=== PATIENT | female | born 1975 | race Caucasian/White ===

== ENCOUNTER 2022-12-12 07:27 | Outpatient (OUT) | payer BC, SELFPAY ==
[2022-12-12 07:44] LABS: Basophils Absolute Auto 0.1 10^3/uL (0.0-0.1); Eosinophils Absolute Auto 0.2 10^3/uL (0.0-0.7); Eosinophils Percent Auto 3.5 % (0.9-7.0); Hematocrit 40.3 % (36.0-48.0); Hemoglobin 13.3 g/dL (12.0-16.0); Immature Granulocytes Abs Auto 0.01 10^3/uL (0.00-0.03); Immature Granulocytes Pct Auto 0.2 % (0.0-0.5); Lymphocytes Absolute Auto 2.3 10^3/uL (1.2-3.8); Lymphocytes Percent Auto 39.6 % (20.5-60.0); Mean Corpuscular Hemoglobin 28.7 pg (26.7-34.0); Mean Corpuscular Volume 86.9 fL (81.0-99.0); Mean Platelet Volume 9.9 fL (9.5-13.5); Monocytes Absolute Auto 0.3 10^3/uL (0.3-0.8); Neutrophils Absolute Auto 2.9 10^3/uL (1.4-6.5); Neutrophils Percent Auto 50.7 % (43.0-75.0); Platelet Count 286 10^3/uL (150-450); Red Blood Count 4.64 10^6/uL (4.20-5.40); Red Cell Distribution Width 13.1 % (11.0-15.0); White Blood Count 5.8 10^3/uL (4.0-11.0)
[2022-12-12 13:55] LABS: Anion Gap 11.7; Carbon Dioxide 26.1 mmol/L (21.0-32.0); Chloride 105 mmol/L (98-107); Potassium 3.8 mmol/L (3.5-5.1); Sodium 139 mmol/L (136-145)
[2022-12-12 13:56] LABS: Alanine Aminotransferase 42 U/L (14-59); Albumin Globulin Ratio 1.1; Alkaline Phosphatase 102 U/L (46-116); Aspartate Amino Transferase 21 U/L (15-37); BUN Creatinine Ratio 18.9; Bilirubin Total 0.8 mg/dL (0.2-1.0); Chol HDL Ratio 2.9; Cholesterol 212 mg/dL (<=200); Estimated GFR (African America >60 (>=60); Estimated GFR (Non-African Ame >60 (>=60); Globulin 3.6 g/dL; Glucose 98 mg/dL (74-106); HDL Cholesterol 72 mg/dL (40-60); Total Protein 7.6 g/dL (6.4-8.2); Triglycerides 97 mg/dL (<=150); VLDL CHOLESTEROL 19.4 mg/dL
[2022-12-12 13:57] LABS: Thyroid Stimulating Hormone 2.664 uIU/mL (0.358-3.740)
== END 2022-12-12 07:28 | disposition home or self-care (01) ==
LOC: LAB 07:27
PROVIDERS: PCP Family Medicine; Visit Provider Family Medicine
DX: Z00.00 Encounter for general adult medical examination without abnormal findings (principal)
CPT/HCPCS: 36415; 80053; 80061; 84443; 85025

== ENCOUNTER 2023-03-25 14:30 | Outpatient (OUT) | payer BC, SELFPAY | END 2023-03-25 14:31 | disposition home or self-care (01) | LOC: LAB 14:31 | PROVIDERS: PCP Family Medicine | DX: D39.10 Neoplasm of uncertain behavior of unspecified ovary (principal) | CPT/HCPCS: 36415; 83520; 86336 ==

== ENCOUNTER 2023-03-26 15:19 | Outpatient (OUT) | payer BC, SELFPAY | END 2023-03-26 15:20 | disposition home or self-care (01) | PROVIDERS: PCP Family Medicine | DX: D39.10 Neoplasm of uncertain behavior of unspecified ovary (principal) | CPT/HCPCS: 36415; 86336 ==

== ENCOUNTER 2023-07-01 21:47 | Outpatient (REF) | payer BC, SELFPAY ==
[2023-07-07 09:09] LABS: Age Gdln ACOG Testing Note (.); HPV Aptima Negative (Negative); IGP, Aptima HPV, rfx 16/18,45 Note (.)
== END 2023-07-01 21:48 | disposition home or self-care (01) ==
LOC: LAB 21:47
PROVIDERS: PCP Family Medicine; Visit Provider Physician Assistant
DX: Z01.419 Encounter for gynecological examination (general) (routine) without abnormal findings (principal)
CPT/HCPCS: 87624; G0145

== ENCOUNTER 2023-09-09 08:21 | Outpatient (OUT) | payer BC, SELFPAY ==
--- OUTSIDE RECORDS SUMMARY | 2023-09-10 08:24 | XMS_ITS | CCD ---
Author Organization [facility] Care Team Providers Care Director Of Public Works Name Role Phone DEREK BENITEZ Attending Unavailable DEREK BENITEZ Referring Unavailable JAIDEN ., DR SURESH Attending Unavailable JAIDEN ., DR SURESH Admitting Unavailable JAIDEN ., DR SURESH Primary Care Unavailable JAIDEN ., DR SURESH Consulting Unavailable MISC, DR PAREDES Admitting Unavailable MISC, DR PAREDES Consulting Unavailable MISC, DR PAREDES Attending Unavailable JAIDEN ., DR SURESH Primary Care Unavailable MISC, DR PAREDES Attending Unavailable MISC, DR PAREDES Admitting Unavailable JAIDEN ., DR SURESH Primary Care Unavailable JAIDEN ., DR SURESH Consulting Unavailable MISC, DR PAREDES Admitting Unavailable MISC, DR PAREDES Consulting Unavailable MISC, DR PAREDES Attending Unavailable JAIDEN ., DR SURESH Primary Care Unavailable KATHRYN ESCAMILLA Attending Unavailable Allergies Allergy Classification Reported Allergen(s) Allergy Type Date of Onset Reaction(s) Facility (1 source) Bee; Translations: [BEES] Propensity to adverse reactions (disorder) [facility] Repository (1 source) bee venom Drug allergy (disorder) [facility] Repository Problems Active Problems Problem Classification Problem Date Documented Da te Episodic/Chronic Neoplasms of unspecified nature or uncertain behavior (4 sources) 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; Translations: [NEOPLASM UNCERT BEHAVIOR UNS OVARY] Onset: 10-02-2022 Episodic Past or Other Problems Problem Classification Problem Date Documented Date Episodic/Chronic Immunizations and screening for infectious disease (1 source) Encounter for screening for human papillomavirus (HPV); Translations: [ENC SCREENING HUMAN PAPILLOMAVIRUS] Onset: 06-20-2022 Episodic Other screening for suspected conditions (not mental disorders or infectious disease) (4 sources) Encounter for screening for malignant neoplasm of cervix; Translations: [ENC SCREENING MALIG NEOPLASM CERV] Onset: 06-18-2022 Episodic Results Test Name Value Interpretation Reference Range Facility MG MAMM SCREEN 3D NIKO CADon 11-19-2022 MG MAMM SCREEN 3D NIKO CAD Patient: KATHRYN PADRON Exam Date: 11/19/2022 : 1975 Gender:F Ordering : DR KERWIN VERA . Admission #: [id number] Family : DR PAREDES [facility] [place] Order #: [id number] CLICK HERE TO VIEW EXAM RADIOLOGY REPORT PROCEDURE: MAMMOGRAM SCREENING 3D BILATERAL CAD COMPARISON: MG MAMM SCREEN 3D NIKO CAD, 11/15/2021. MG MAMM SCREEN 3D NIKO CAD, 11/12/2020. MG MAMM SCREEN NIKO W CAD, 11/10/2019. MG MAMM SCREEN NIKO W CAD, 11/09/2017. INDICATIONS: Screening mammography Calculator Name NCI Breast Cancer Risk Assessment Tool 5 Year Breast Cancer Risk 0.80% Lifetime Breast Cancer Risk 9.70% Personal Breast Cancer No Personal Ovarian Cancer Yes, 43 Treatments None Family Cancers Grandfather-paternal with colon cancer at age 80. LOCATION: [facility] BREAST COMPOSITION: Heterogeneously dense,which may obscure small masses. FINDINGS: DIAGNOSTIC CATEGORY 1--NEGATIVE. RIGHT BREAST: No significant suspicious finding. No significant change has occurred. LEFT BREAST: No significant suspicious finding. No significant change has occurred. RECOMMENDATIONS: ROUTINE MAMMOGRAM AND CLINICAL EVALUATION IN 12 MONTHS. PLEASE NOTE: A NORMAL MAMMOGRAM DOES NOT EXCLUDE THE POSSIBILITY OF BREAST CANCER. A CLINICALLY SUSPICIOUS PALPABLE LUMP SHOULD BE BIOPSIED. Dictated by: Vincent Mcmanus M.D. on 11/19/2022 at 14:00 Approved by: Vincent Mcmanus M.D. on 11/19/2022 at 14:02 Normal [facility] INHIBIN Bon 10-06-2022 Inhibin B <7.0 Normal [facility] Comment on above: Result Comment: Rishabh y Follicular <261.0 Late Follicular <286.0 Periovulatory <189.0 MidLuteal <164.0 End Luteal <107.0 Post Menopausal < 17.0 Inhibin B performed by [facility](TM) Enzyme Linked Immunoassay methodology. Values obtained with different assay methods or kits cannot be used interchangeably. Performed By: #### I MOBNB #### [facility] [address] [place] [address] Dr. Socrates Aquino INHIBIN A, ULTRASENSITVEon 0 10-03-2022 Inhibin A, Ultrasensitive 0.4 pg/mL Normal [facility] Comment on above: Result Comment: Mens trual Phase Early Follicular <34.0 Late Follicular <99.0 Periovulatory 8.0-233.0 MidLuteal <145.0 End Luteal <145.0 Postmenopausal <4.0 Inhibin A performed by [employer] Access Automated Immunoassay methodology. Values obtained with different assay methods or kits cannot be used interchangeably. Performed By: #### I NHIBIN #### [facility] [address] [place] [address] Dr. Socrates Aquino PAP ACOG PANEL 2: 30 to 65on 06-26-2022 . . Normal [facility] Comment on above: Result Comment: Perf ormed at: BA Performed By: #### [id number] #### [facility] [address] [place] [address] Dr. Socrates Aquino Age Gdln ACOG Testing 30-65 [facility] Comment on above: Performed By: #### [id number] #### [facility] [address] [place] [address] Dr. Socrates Aquino DIAGNOSIS: Comment Normal [facility] Comment on above: Result Comment: NEGA TIVE FOR INTRAEPITHELIAL LESION OR MALIGNANCY. Performed at: BA Performed By: #### [id number] #### [facility] [address] [place] [address] Dr. Socrates Aquino HPV Aptima Negative Normal Negative [facility] Comment on above: Result Comment: This nucleic acid amplification test detects fourteen high-risk HPV types (16,18,31,33,35,39,45,51,52,56,58,59,66,68) without differentiation. Performed at: =G Performed By: #### [id number] #### [facility] [address] [place] [address] Dr. Socrates Aquino HPV Genotype Reflex Comment Normal [facility] Comment on above: Result Comment: Crit eria not met, HPV Genotype not performed. Performed at: BA Performed By: #### [id number] #### [facility] [address] [place] [address] Dr. Socrates Aquino Methodology: Comment Normal [facility] Comment on above: Result Comment: This liquid based ThinPrep(R) pap test was screened with the use of an image guided system. Performed at: WB Performed By: #### [id number] #### [facility] [address] [place] [address] Dr. Socrates Aquino Note: Comment Normal [facility] Comment on above: Result Comment: The Pap smear is a screening test designed to aid in the detection of premalignant and malignant conditions of the uterine cervix. It is not a diagnostic procedure and should not be used as the sole means of detecting cervical cancer. Both false-positive and false-negative reports do occur. . Performed at: WB Performed By: #### [id number] #### [facility] [address] [place] [address] Dr. Socrates Aquino Performed by: Comment Normal [facility] Comment on above: Result Comment: Brittany Campbell, Electrical Power Station Technician (ASCP) Performed at: BA Performed By: #### 4 [id number] #### [facility] [address] [place] [address] Dr. Socrates Aquino Specimen adequacy: Comment Normal [facility] Comment on above: Result Comment: Sati sfactory for evaluation. Endocervical and/or squamous metaplastic cells (endocervical component) are present. Performed at: BA Performed By: #### 4 [id number] #### [facility] [address] [place] [address] Dr. Socrates Aquino INHIBIN Bon 04-11-2022 Inhibin B <7.0 Normal [facility] Comment on above: Result Comment: Rishabh y Follicular <261.0 Late Follicular <286.0 Periovulatory <189.0 MidLuteal <164.0 End Luteal <107.0 Post Menopausal < 17.0 Inhibin B performed by [facility](TM) Enzyme Linked Immunoassay methodology. Values obtained with different assay methods or kits cannot be used interchangeably. Performed By: #### I NHBNB #### [facility] [address] [place] [address] Dr. Socrates Aquino INHIBIN A, ULTRASENSITVEon 1 Inhibin A, Ultrasensitive 0.8 pg/mL Normal [facility] Comment on above: Result Comment: Mens trual Phase Early Follicular <34.0 Late Follicular <99.0 Periovulatory 8.0-233.0 MidLuteal <145.0 End Luteal <145.0 Postmenopausal <4.0 Inhibin A performed by [employer] Access Automated Immunoassay methodology. Values obtained with different assay methods or kits cannot be used interchangeably. Performed By: #### I NHIBIN #### [facility] [address] [place] [address] Dr. Socrates Aquino CNOVSPon 02-25-2019 CNOVSP Visit (SP) Office (GYNOSA) KATHRYN PADRON ([id number]) 1975 F Date Time Provider Department 02/25/19 8:00 AM DEREK BENITEZ During your visit today, we recorded the following information about you: Temperature Pulse Respiration Blood pressure 98 degrees 68/minute 16/minute 107/73 Weight 71.8 kg Derek Benitez MD 02/27/2019 6:59 AM Signed Gynecologic Oncology [facility] - Major Consultation Re: Kathryn Padron [facility]#: [id number] 02/26/2019 Dear Kerwin Vera: Thank you for referring Kathryn for consultation. Briefly, she is a 43 year old female who has a past medical history of Abnormal uterine bleeding, Enlarged uterus, Ovarian cancer (HCC) (05/31/2018), Pelvic pain in female, and Uterine fibroid. She has a past surgical history that includes essure (2012); laparoscopy diagnostic (06/2017); and hysterectomy hx (05/31/2018). 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 PRIOR TREATMENT AND DATE: 1) 05/31/2018: MANJINDER, RSO, LS and cysto for enlarged uterus, menorrhagia - PATHOLOGY: IMAGIN05/22/2018 PELVIC US 07/09/2018 CT Chest IMPRESSION: Essentially unremarkable CT examination of the chest. ?No definite CT evidence for metastatic disease. 07/09/2018 CT Abd/Pel IMPRESSION: 1. ?4.9 cm , mildly complex cystic lesion within the left adnexa, as above. ?Correlation with follow-up pelvic ultrasound examinations is recommended to evaluate for stability and/or regression. 2. ?1.3 cm focus of gas within the left adnexa, which is likely postoperative in nature. ?If necessary, correlation with follow-up CT examinations is suggested to assess for stability. 3. ?No definite CT evidence for metastatic disease to the abdomen or pelvis. 4. ?Incidental note is made of right-sided nonobstructive nephrolithiasis 07/14/2018 Pelvic US Findings: Uterus: surgically absent Right ovary: surgically absent Left ovary: 3.7 x 3.3 x 2.7 cm complex area within. Left ovary: 5.2 x 4.4 x 3.9cm Conclusion: 3.7 left ovarian mass having cystic and solid components 06/28/2018 Obtained pathology slides FINAL DIAGNOSIS Consultation case from [facility], [place], [place]: 1. Endometrium, curettings ([id number], 2 HERMAN-stained slides, 07/17/2017) - Secretory endometrium. 2. Right fallopian tube and ovary, right salpingo-oophorectomy ([id number], 18 HERMAN-stained and 6 IHC-stained slides, 05/31/2018) - A minute microscopical granulosa cell tumor, measuring 1.0 mm in greatest dimension. - Follicle cysts. 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 Uterus, cervix and left fallopian tube, hysterectomy and left salpingectomy (B): Cervix - Chronic cervicitis. Endometrium - Proliferative endometrium. Myometrium - Benign leiomyomas. Left fallopian tube - No significant pathologic abnormality. BY/carlota 06/30/2018 COMMENT Immunohistochemical staining performed at the [facility] on the right ovarian tumor shows weak positive for calretinin and inhibin and negative for CK7 and RODNEY, supporting the above interpretation. SYNOPTIC REPORT OF GOMES PATHOLOGIC FINDINGS 24 SLIDES ([id number]): ? ? ?Procedure: ? ? ? Simple hysterectomy ? ? ? Right salpingo-oophorectomy ? ? ? Left salpingectomy Specimen Integrity: ? ? ? Right ovary capsule intact ? ? ? Right fallopian tube serosa intact ? ? ? Left fallopian tube serosa intact Primary Tumor Site: ? ? ? Right ovary Ovarian Surface Involvement: ? ? ? Absent Fallopian Tube Surface Involvement: ? ? ? Absent Tumor Size: ? ? ? Greatest dimension: 0.1 cm Histologic Type: ? ? ? Granulosa cell tumor, adult type Histologic Grade: ? ? ? G1: Well differentiated ? ? ? Two-tier grading System: Low grade Implants: ? ? ? Not applicable/not sampled Involvement of other tissues/organs: ? ? ? Not identified ? ? ? Largest extrapelvic peritoneal focus, not applicable ? Peritoneal Ascitic Fluid, Not submitted/unknown Treatment Effect: ? ? ? No known presurgical therapy Regional Lymph Nodes: ? ? ? No nodes submitted or found Pathologic Stage Classification (pTNM, AJCC 8th ed) TNM Descriptors: ? ? ? Not applicable Primary Tumor (pT): ? ? ? pT1a: Tumor limited to 1 ovary (capsule intact) or fallopian tube, no tumor on ovarian or fallopian tube surface; no malignant cells in ascites or peritoneal washings Regional Lymph Nodes (pN): ? ? ? pNX: Cannot be assessed Distant Metastasis (pM): ? ? ? Not applicable/Not confirmed pathologically in this case LABS: No results found for: CA125 HEALTH MAINTENANCE: Last pap: 05/05/2018 - negative Last mammogram: Last colonoscopy: SUBJECTIVE/INTERVAL HISTORY: Kathryn Olivas Zacamanda reports that she feels well. Had 2 renal stones surgeries and one surgery to remove her other ovary. No abdominal pain, nausea, vomiting, diarrhea, or constipation. No bloating, early satiety, indigestion, or increased flatulence. No dysuria, gross hematuria, urinary frequency, urinary urgency, or incontinence. No shortness of breath, cough, or chest pain. Her ECOG performance status is zero (fully active, able to carry on all pre-disease performance without restriction). OBJECTIVE: VITALS: BP 107/73 Pulse 68 Temp 36.7 ?C (98 ?F) (Oral) Resp 16 Wt 71.8 kg (158 lb 3.2 oz) LMP 05/25/2018 SpO2 100% GENERAL: alert, oriented, pleasant and cooperative. HEENT: Normocephalic, atraumatic, mucus membranes moist and no lesions. 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 I was not aware of that - Per patient, pathology is benign, we will request pathology report - She is young and she was placed on hormonal therapy. We need to be careful with that as her granulosa cell tumor is hormonally dependent tumor but it was early stage and was removed - RTC in 6 months Total face to face time 15 minutes and more that 50% spent on counseling the patient and coordinating her care. Thank you for referring her for gynecologic oncology consultation. I will be in touch with you regarding her findings. 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 Follow-up and Disposition History Recorded Prescriptions as of 02/25/2019 Sig: PREMARIN 0.625 MG TABLET MULTIVITAMIN ORAL Take by mouth. COLACE ORAL Take 1 tablet by mouth as nee* Problem List As Of Date: 02/25/2019 (None) Encounter Status:Closed by DEREK BENITEZ MD on 02/27/19 Normal [facility] PROGRESSon 02-25-2019 PROGRESS HNO ID: [id number] Author: Derek Benitez Service: ? Author Type: Physician Type: Progress Notes Filed: 02/27/2019 6:59 AM Note Text: Gynecologic Oncology [facility] - Major Consultation Re: Kathryn Padron [facility]#: [id number] 02/26/2019 Dear Kerwin Vera: Thank you for referring Kathryn for consultation. Briefly, she is a 43 year old female who has a past medical history of Abnormal uterine bleeding, Enlarged uterus, Ovarian cancer (HCC) (05/31/2018), Pelvic pain in female, and Uterine fibroid. She has a past surgical history that includes essure (2012); laparoscopy diagnostic (06/2017); and hysterectomy hx (05/31/2018). 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 PRIOR TREATMENT AND DATE: 1) 05/31/2018: MANJINDER, RSO, LS and cysto for enlarged uterus, menorrhagia - PATHOLOGY: IMAGIN05/22/2018 PELVIC US 07/09/2018 CT Chest IMPRESSION: Essentially unremarkable CT examination of the chest. ?No definite CT evidence for metastatic disease. 07/09/2018 CT Abd/Pel IMPRESSION: 1. ?4.9 cm , mildly complex cystic lesion within the left adnexa, as above. ?Correlation with follow-up pelvic ultrasound examinations is recommended to evaluate for stability and/or regression. 2. ?1.3 cm focus of gas within the left adnexa, which is likely postoperative in nature. ?If necessary, correlation with follow-up CT examinations is suggested to assess for stability. 3. ?No definite CT evidence for metastatic disease to the abdomen or pelvis. 4. ?Incidental note is made of right-sided nonobstructive nephrolithiasis 07/14/2018 Pelvic US Findings: Uterus: surgically absent Right ovary: surgically absent Left ovary: 3.7 x 3.3 x 2.7 cm complex area within. Left ovary: 5.2 x 4.4 x 3.9cm Conclusion: 3.7 left ovarian mass having cystic and solid components 06/28/2018 Obtained pathology slides FINAL DIAGNOSIS Consultation case from [facility], [place], [place]: 1. Endometrium, curettings ([id number], 2 HERMAN-stained slides, 07/17/2017) - Secretory endometrium. 2. Right fallopian tube and ovary, right salpingo-oophorectomy ([id number], 18 HERMAN-stained and 6 IHC-stained slides, 05/31/2018) - A minute microscopical granulosa cell tumor, measuring 1.0 mm in greatest dimension. - Follicle cysts. 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 Uterus, cervix and left fallopian tube, hysterectomy and left salpingectomy (B): Cervix - Chronic cervicitis. Endometrium - Proliferative endometrium. Myometrium - Benign leiomyomas. Left fallopian tube - No significant pathologic abnormality. BY/carlota 06/30/2018 COMMENT Immunohistochemical staining performed at the [facility] on the right ovarian tumor shows weak positive for calretinin and inhibin and negative for CK7 and RODNEY, supporting the above interpretation. SYNOPTIC REPORT OF GOMES PATHOLOGIC FINDINGS 24 SLIDES ([id number]): ? ? ?Procedure: ? ? ? Simple hysterectomy ? ? ? Right salpingo-oophorectomy ? ? ? Left salpingectomy Specimen Integrity: ? ? ? Right ovary capsule intact ? ? ? Right fallopian tube serosa intact ? ? ? Left fallopian tube serosa intact Primary Tumor Site: ? ? ? Right ovary Ovarian Surface Involvement: ? ? ? Absent Fallopian Tube Surface Involvement: ? ? ? Absent Tumor Size: ? ? ? Greatest dimension: 0.1 cm Histologic Type: ? ? ? Granulosa cell tumor, adult type Histologic Grade: ? ? ? G1: Well differentiated ? ? ? Two-tier grading System: Low grade Implants: ? ? ? Not applicable/not sampled Involvement of other tissues/organs: ? ? ? Not identified ? ? ? Largest extrapelvic peritoneal focus, not applicable ? Peritoneal Ascitic Fluid, Not submitted/unknown Treatment Effect: ? ? ? No known presurgical therapy Regional Lymph Nodes: ? ? ? No nodes submitted or found Pathologic Stage Classification (pTNM, AJCC 8th ed) TNM Descriptors: ? ? ? Not applicable Primary Tumor (pT): ? ? ? pT1a: Tumor limited to 1 ovary (capsule intact) or fallopian tube, no tumor on ovarian or fallopian tube surface; no malignant cells in ascites or peritoneal washings Regional Lymph Nodes (pN): ? ? ? pNX: Cannot be assessed Distant Metastasis (pM): ? ? ? Not applicable/Not confirmed pathologically in this case LABS: No results found for: CA125 HEALTH MAINTENANCE: Last pap: 05/05/2018 - negative Last mammogram: Last colonoscopy: SUBJECTIVE/INTERVAL HISTORY: Kathryn Padron reports that she feels well. Had 2 renal stones surgeries and one surgery to remove her other ovary. No abdominal pain, nausea, vomiting, diarrhea, or constipation. No bloating, early satiety, indigestion, or increased flatulence. No dysuria, gross hematuria, urinary frequency, urinary urgency, or incontinence. No shortness of breath, cough, or chest pain. Her ECOG performance status is zero (fully active, able to carry on all pre-disease performance without restriction). OBJECTIVE: VITALS: BP 107/73 Pulse 68 Temp 36.7 ?C (98 ?F) (Oral) Resp 16 Wt 71.8 kg (158 lb 3.2 oz) LMP 05/25/2018 SpO2 100% GENERAL: alert, oriented, pleasant and cooperative. HEENT: Normocephalic, atraumatic, mucus membranes moist and no lesions. 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 I was not aware of that - Per patient, pathology is benign, we will request pathology report - She is young and she was placed on hormonal therapy. We need to be careful with that as her granulosa cell tumor is hormonally dependent tumor but it was early stage and was removed - RTC in 6 months Total face to face time 15 minutes and more that 50% spent on counseling the patient and coordinating her care. Thank you for referring her for gynecologic oncology consultation. I will be in touch with you regarding her findings. Sincerely, Derek Benitez MD A letter and a copy of this office note were sent to: Kerwin Vera MD (TOUR PRODUCTION SUPERVISOR) CC: Mei Butt MD (PCP) Normal [facility] US-US PELVIS and TRANSVAG IM PORTon 08-26-2018 US-US PELVIS and TRANSVAG IMPORT Images were obtained outside of [facility] [id number] Normal [facility] CNOVon 07-21-2018 CNOV Office Visit (GYNML) KATHRYN PADRON ([id number]) 1975 F Date Time Provider Department 07/21/18 10:15 AM DEREK BENITEZ GYN During your visit today, we recorded the following information about you: Temperature Pulse Blood pressure Weight 97.8 degrees 75/minute 122/80 71.8 kg Derek Benitez MD 07/21/2018 11:03 AM Signed Gynecologic Oncology [facility] - Major Consultation Re: Kathryn Padron [facility]#: [id number] 07/21/2018 Dear Kerwin Vera: Thank you for referring Kathryn for consultation. Briefly, she is a 43 year old female who has a past medical history of Abnormal uterine bleeding; Enlarged uterus; Ovarian cancer (HCC) (05/31/2018); Pelvic pain in female; and Uterine fibroid. She has a past surgical history that includes essure (2012); laparoscopy diagnostic (06/2017); and hysterectomy hx (05/31/2018). 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 PRIOR TREATMENT AND DATE: 1) 05/31/2018: MANJINDER, RSO, LS and cysto for enlarged uterus, menorrhagia - PATHOLOGY: IMAGIN05/22/2018 PELVIC US 07/09/2018 CT Chest IMPRESSION: Essentially unremarkable CT examination of the chest. ?No definite CT evidence for metastatic disease. 07/09/2018 CT Abd/Pel IMPRESSION: 1. ?4.9 cm , mildly complex cystic lesion within the left adnexa, as above. ?Correlation with follow-up pelvic ultrasound examinations is recommended to evaluate for stability and/or regression. 2. ?1.3 cm focus of gas within the left adnexa, which is likely postoperative in nature. ?If necessary, correlation with follow-up CT examinations is suggested to assess for stability. 3. ?No definite CT evidence for metastatic disease to the abdomen or pelvis. 4. ?Incidental note is made of right-sided nonobstructive nephrolithiasis 07/14/2018 Pelvic US Findings: Uterus: surgically absent Right ovary: surgically absent Left ovary: 3.7 x 3.3 x 2.7 cm complex area within. Left ovary: 5.2 x 4.4 x 3.9cm Conclusion: 3.7 left ovarian mass having cystic and solid components 06/28/2018 Obtained pathology slides FINAL DIAGNOSIS Consultation case from [place], [place]: 1. Endometrium, curettings ([id number], 2 HERMAN-stained slides, 07/17/2017) - Secretory endometrium. 2. Right fallopian tube and ovary, right salpingo-oophorectomy ([id number], 18 HERMAN-stained and 6 IHC-stained slides, 05/31/2018) - A minute microscopical granulosa cell tumor, measuring 1.0 mm in greatest dimension. - Follicle cysts. 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 Uterus, cervix and left fallopian tube, hysterectomy and left salpingectomy (B): Cervix - Chronic cervicitis. Endometrium - Proliferative endometrium. Myometrium - Benign leiomyomas. Left fallopian tube - No significant pathologic abnormality. BY/carlota 06/30/2018 COMMENT Immunohistochemical staining performed at the [facility] on the right ovarian tumor shows weak positive for calretinin and inhibin and negative for CK7 and RODNEY, supporting the above interpretation. SYNOPTIC REPORT OF GOMES PATHOLOGIC FINDINGS 24 SLIDES ([id number]): ? ? ?Procedure: ? ? ? Simple hysterectomy ? ? ? Right salpingo-oophorectomy ? ? ? Left salpingectomy Specimen Integrity: ? ? ? Right ovary capsule intact ? ? ? Right fallopian tube serosa intact ? ? ? Left fallopian tube serosa intact Primary Tumor Site: ? ? ? Right ovary Ovarian Surface Involvement: ? ? ? Absent Fallopian Tube Surface Involvement: ? ? ? Absent Tumor Size: ? ? ? Greatest dimension: 0.1 cm Histologic Type: ? ? ? Granulosa cell tumor, adult type Histologic Grade: ? ? ? G1: Well differentiated ? ? ? Two-tier grading System: Low grade Implants: ? ? ? Not applicable/not sampled Involvement of other tissues/organs: ? ? ? Not identified ? ? ? Largest extrapelvic peritoneal focus, not applicable ? Peritoneal Ascitic Fluid, Not submitted/unknown Treatment Effect: ? ? ? No known presurgical therapy Regional Lymph Nodes: ? ? ? No nodes submitted or found Pathologic Stage Classification (pTNM, AJCC 8th ed) TNM Descriptors: ? ? ? Not applicable Primary Tumor (pT): ? ? ? pT1a: Tumor limited to 1 ovary (capsule intact) or fallopian tube, no tumor on ovarian or fallopian tube surface; no malignant cells in ascites or peritoneal washings Regional Lymph Nodes (pN): ? ? ? pNX: Cannot be assessed Distant Metastasis (pM): ? ? ? Not applicable/Not confirmed pathologically in this case LABS: No results found for: CA125 HEALTH MAINTENANCE: Last pap: 05/05/2018 - negative Last mammogram: Last colonoscopy: SUBJECTIVE/INTERVAL HISTORY: Kathryn Olivas Vito reports that she feels well. No abdominal pain, nausea, vomiting, diarrhea, or constipation. No bloating, early satiety, indigestion, or increased flatulence. No dysuria, gross hematuria, urinary frequency, urinary urgency, or incontinence. No shortness of breath, cough, or chest pain. Her ECOG performance status is zero (fully active, able to carry on all pre-disease performance without restriction). OBJECTIVE: VITALS: BP 122/80 Pulse 75 Temp 36.6 ?C (97.8 ?F) (Oral) Wt 71.8 kg (158 lb 4.8 oz) LMP 05/25/2018 GENERAL: alert, oriented, pleasant and cooperative. HEENT: Normocephalic, atraumatic, mucus membranes moist and no lesions. 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 We discussed that this cyst could be benign or malignant. We discussed treatment options including observation with follow up US in 3 months vs. Surgical excision. We discussed the rationale, risks and benefits of each option. She elected to proceed with observation - Will repeat US in 3 months - Will call her with the result after that - She is scheduled to see me in December Total face to face time 25 minutes and more that 50% spent on counseling the patient and coordinating her care. Thank you for referring her for gynecologic oncology consultation. I will be in touch with you regarding her findings. Sincerely, Derek Benitez MD A letter and a copy of this office note were sent to: Kerwin Vera MD (TOUR PRODUCTION SUPERVISOR) CC: Mei Butt MD (PCP) Referring Provider: DEREK BENITEZ [[id number]] Allergies As of Date: 07/21/2018 Noted Allergy Reaction BEES 07/21/2018 7 - Swelling Date Reviewed: 07/21/2018 Reviewed by: Derek Benitez - Fully Assessed Reason for Visit: Establish Care [42] Primary Visit Diagnosis:Granulosa cell tumor of ovary, unspecified laterality (HCC) [D39.10] Prescriptions as of 07/21/2018 Sig: COLACE ORAL Take 1 tablet by mouth as nee* Problem List As Of Date: 07/21/2018 (None) Encounter Status:Closed by DEREK BENITEZ MD on 07/21/18 [facility] PROGRESSon 07-15-2018 Protein mass conc HNO ID: [id number] Author: Derek Benitez Service: (none) Author Type: Physician Type: Progress Notes Filed: 07/21/2018 11:03 AM Note Text: Gynecologic Oncology [facility] - Major Consultation Re: Kathryn Olivas Vito CCF#: [id number] 07/21/2018 Dear Kerwin Vera: Thank you for referring Kathryn for consultation. Briefly, she is a 43 year old female who has a past medical history of Abnormal uterine bleeding; Enlarged uterus; Ovarian cancer (HCC) (05/31/2018); Pelvic pain in female; and Uterine fibroid. She has a past surgical history that includes essure (2012); laparoscopy diagnostic (06/2017); and hysterectomy hx (05/31/2018). 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 PRIOR TREATMENT AND DATE: 1) 05/31/2018: MANJINDER, RSO, LS and cysto for enlarged uterus, menorrhagia - PATHOLOGY: IMAGIN05/22/2018 PELVIC US 07/09/2018 CT Chest IMPRESSION: Essentially unremarkable CT examination of the chest. ?No definite CT evidence for metastatic disease. 07/09/2018 CT Abd/Pel IMPRESSION: 1. ?4.9 cm , mildly complex cystic lesion within the left adnexa, as above. ?Correlation with follow-up pelvic ultrasound examinations is recommended to evaluate for stability and/or regression. 2. ?1.3 cm focus of gas within the left adnexa, which is likely postoperative in nature. ?If necessary, correlation with follow-up CT examinations is suggested to assess for stability. 3. ?No definite CT evidence for metastatic disease to the abdomen or pelvis. 4. ?Incidental note is made of right-sided nonobstructive nephrolithiasis 07/14/2018 Pelvic US Findings: Uterus: surgically absent Right ovary: surgically absent Left ovary: 3.7 x 3.3 x 2.7 cm complex area within. Left ovary: 5.2 x 4.4 x 3.9cm Conclusion: 3.7 left ovarian mass having cystic and solid components 06/28/2018 Obtained pathology slides FINAL DIAGNOSIS Consultation case from [place], [place]: 1. Endometrium, curettings ([id number], 2 HERMAN-stained slides, 07/17/2017) - Secretory endometrium. 2. Right fallopian tube and ovary, right salpingo-oophorectomy ([id number], 18 HERMAN-stained and 6 IHC-stained slides, 05/31/2018) - A minute microscopical granulosa cell tumor, measuring 1.0 mm in greatest dimension. - Follicle cysts. 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 Uterus, cervix and left fallopian tube, hysterectomy and left salpingectomy (B): Cervix - Chronic cervicitis. Endometrium - Proliferative endometrium. Myometrium - Benign leiomyomas. Left fallopian tube - No significant pathologic abnormality. BY/carlota 06/30/2018 COMMENT Immunohistochemical staining performed at the [facility] on the right ovarian tumor shows weak positive for calretinin and inhibin and negative for CK7 and RODNEY, supporting the above interpretation. SYNOPTIC REPORT OF GOMES PATHOLOGIC FINDINGS 24 SLIDES ([id number]): ? ? ?Procedure: ? ? ? Simple hysterectomy ? ? ? Right salpingo-oophorectomy ? ? ? Left salpingectomy Specimen Integrity: ? ? ? Right ovary capsule intact ? ? ? Right fallopian tube serosa intact ? ? ? Left fallopian tube serosa intact Primary Tumor Site: ? ? ? Right ovary Ovarian Surface Involvement: ? ? ? Absent Fallopian Tube Surface Involvement: ? ? ? Absent Tumor Size: ? ? ? Greatest dimension: 0.1 cm Histologic Type: ? ? ? Granulosa cell tumor, adult type Histologic Grade: ? ? ? G1: Well differentiated ? ? ? Two-tier grading System: Low grade Implants: ? ? ? Not applicable/not sampled Involvement of other tissues/organs: ? ? ? Not identified ? ? ? Largest extrapelvic peritoneal focus, not applicable ? Peritoneal Ascitic Fluid, Not submitted/unknown Treatment Effect: ? ? ? No known presurgical therapy Regional Lymph Nodes: ? ? ? No nodes submitted or found Pathologic Stage Classification (pTNM, AJCC 8th ed) TNM Descriptors: ? ? ? Not applicable Primary Tumor (pT): ? ? ? pT1a: Tumor limited to 1 ovary (capsule intact) or fallopian tube, no tumor on ovarian or fallopian tube surface; no malignant cells in ascites or peritoneal washings Regional Lymph Nodes (pN): ? ? ? pNX: Cannot be assessed Distant Metastasis (pM): ? ? ? Not applicable/Not confirmed pathologically in this case LABS: No results found for: CA125 HEALTH MAINTENANCE: Last pap: 05/05/2018 - negative Last mammogram: Last colonoscopy: SUBJECTIVE/INTERVAL HISTORY: Kathryn Olivas Vito reports that she feels well. No abdominal pain, nausea, vomiting, diarrhea, or constipation. No bloating, early satiety, indigestion, or increased flatulence. No dysuria, gross hematuria, urinary frequency, urinary urgency, or incontinence. No shortness of breath, cough, or chest pain. Her ECOG performance status is zero (fully active, able to carry on all pre-disease performance without restriction). OBJECTIVE: VITALS: BP 122/80 Pulse 75 Temp 36.6 ?C (97.8 ?F) (Oral) Wt 71.8 kg (158 lb 4.8 oz) LMP 05/25/2018 GENERAL: alert, oriented, pleasant and cooperative. HEENT: Normocephalic, atraumatic, mucus membranes moist and no lesions. 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 We discussed that this cyst could be benign or malignant. We discussed treatment options including observation with follow up US in 3 months vs. Surgical excision. We discussed the rationale, risks and benefits of each option. She elected to proceed with observation - Will repeat US in 3 months - Will call her with the result after that - She is scheduled to see me in December Total face to face time 25 minutes and more that 50% spent on counseling the patient and coordinating her care. Thank you for referring her for gynecologic oncology consultation. I will be in touch with you regarding her findings. Sincerely, Derek Benitez MD A letter and a copy of this office note were sent to: Kerwin Vera MD (TOUR PRODUCTION SUPERVISOR) CC: Mei Butt MD (PCP) [facility] US-US PELVIS and TRANSVAG IM PORTon 07-14-2018 US-US PELVIS and TRANSVAG IMPORT Images were obtained outside of [facility] [id number] N [facility] CT ABD/PEL W IVCONon 019 CT ABD/PEL W IVCON * * *Final Report* * * DATE OF EXAM: Jul 09 2018 9:07AM [facility] 0530 - CT ABD/PEL W IVCON / PROCEDURE REASON: Malignant neoplasm of right ovary (HCC) * * * * Physician Interpretation * * * * RESULT: EXAMINATION: CT ABDOMEN AND PELVIS WITH IV CONTRAST CLINICAL HISTORY: Right ovarian carcinoma. Status post partial hysterectomy. TECHNIQUE: CT of the abdomen and pelvis was performed using standard technique, scanning from just above the dome of the diaphragm to the symphysis pubis. MQ: CTAP_3 Contrast: Oral: 900 ml of 50ML Omnipaque 240 W 850ML Water IV: 142 ml of Omnipaque 300 CT Radiation dose: Integrated Dose-length product (DLP) for this visit = 473 mGy*cm. CT Dose Reduction Employed: Automated exposure control (AEC) COMPARISON: None. RESULT: Liver: No mass. Biliary: No bile duct dilation. Spleen: No mass. No splenomegaly. Pancreas: No mass or duct dilation. Adrenals: No mass. Kidneys: No enhancing mass or hydronephrosis. Approximate 5 mm nonobstructive mid pole right renal calculus is noted. Punctate, subcentimeter renal hypodensities are difficult to fully calculus, however, likely related to small cysts. GI tract: No dilation or wall thickening. Lymph nodes: No abdominal or pelvic lymphadenopathy. Mesentery/Peritoneum: No ascites or mass. Retroperitoneum: No mass. Vasculature: The celiac axis and SMA are patent. The portal vein and branches, splenic vein, SMV, and hepatic veins are patent. No abdominal aortic or iliac artery aneurysm. Pelvis: No free fluid is appreciated within the pelvis. The uterus is surgically absent, compatible with the patient's history of recent hysterectomy. Small focus of gas adjacent to the left adnexa measures approximately 1.3 cm is, likely postoperative in nature. Calcification within the expected region of the superior aspect of the vaginal cuff is noted. No right sided adnexal mass is definitively identified. Left adnexal cyst measures approximately 4.9 x 4.1 cm, demonstrating mildly thickened valdivia. Bones/Soft Tissues: No acute findings. Lower thorax: A chest CT performed will be reported separately. IMPRESSION: 1. 4.9 cm , mildly complex cystic lesion within the left adnexa, as above. Correlation with follow-up pelvic ultrasound examinations is recommended to evaluate for stability and/or regression. 2. 1.3 cm focus of gas within the left adnexa, which is likely postoperative in nature. If necessary, correlation with follow-up CT examinations is suggested to assess for stability. 3. No definite CT evidence for metastatic disease to the abdomen or pelvis. 4. Incidental note is made of right-sided nonobstructive nephrolithiasis. Transcribe Date/Time: Jul 09 2018 11:21A Dictated by: SEBASTIAN THACKER MD This examination was interpreted and the report reviewed and electronically signed by: SEBASTIAN THACKER MD on Jul 09 2018 11:30AM EST Thank you for allowing us to participate in the care of your patient. Should there be any questions regarding this interpretation, please call [phone]. If you are unable to reach us at the number above, please feel free to contact [facility] at [phone]. [id number] N [facility] CT CHEST W IVCONon 9 CT CHEST W IVCON * * *Final Report* * * DATE OF EXAM: Jul 09 2018 9:07AM [facility] 0539 - CT CHEST W IVCON / PROCEDURE REASON: Malignant neoplasm of right ovary (HCC) * * * * Physician Interpretation * * * * RESULT: EXAMINATION: CHEST CT WITH CONTRAST CLINICAL HISTORY: Malignant neoplasm of right ovary (HCC) Technique: Spiral CT acquisition of the chest from the thoracic inlet to the upper abdomen following IV contrast. MQ: CTCWR_5 Contrast: 900 mL 50ML Omnipaque 240 W 850ML Water Oral CT Dose-Length Product: 188 mGy*cm CT Dose Reduction Employed: Automated exposure control (AEC) Comparison: None RESULT: Limitations: None. Lines, tubes, and devices: None. Lung parenchyma and pleura: No consolidation. No suspicious pulmonary nodule. No pleural effusion. Central airways are patent. Thoracic inlet, heart, and mediastinum: Subcentimeter mediastinal lymph nodes are identified, likely reactive in nature. Mild soft tissue prominence of the right hilum, also likely reactive in nature. The left hilum appears unremarkable. No substantial mediastinal or hilar adenopathy is a small hiatal hernia is suspected. The thoracic aorta is normal in caliber. No substantial pericardial effusion is identified. Bones and soft tissues: No destructive bone lesion. Chest wall is unremarkable. No substantial axillary adenopathy is identified. Upper abdomen: A CT examination of the abdomen has been performed concurrently and will be dictated separately. IMPRESSION: Essentially unremarkable CT examination of the chest. No definite CT evidence for metastatic disease. Transcribe Date/Time: Jul 09 2018 11:28A Dictated by: SEBASTIAN THACKER MD This examination was interpreted and the report reviewed and electronically signed by: SEBASTIAN THACKER MD on Jul 09 2018 11:36AM EST Thank you for allowing us to participate in the care of your patient. Should there be any questions regarding this interpretation, please call [phone]. If you are unable to reach us at the number above, please feel free to contact [facility] at [phone]. [id number] N [facility] PROGRESSon 07-09-2018 PROGRESS HNO ID: [id number] Author: Sandy José Service: (none) Author Type: (none) Type: Progress Notes Filed: 07/09/2018 9:52 AM Note Text: Radiology Service Progress Note PATIENT NAME: Kathryn Padron DATE OF SERVICE: July 09, 2018 TIME: 9:52 AM PATIENT IDENTITY VERIFICATION COMPLETED USING TWO (2) METHODS: Patient confirmed name verbally and ID band matches.. PATIENT GENDER DATA: Female. status: status: NO. PATIENT RELEVANT IMPLANT DATA REVIEWED: Not Applicable RADIOLOGY DEPARTMENT: CT; Exam(s) Completed: Chest Abdomen Pelvis With IV and Oral contrast PERIPHERAL IV DATA: Site assessment: Clean,Dry and Intact, Site disposition Discontinued SIGNED BY: Sandy José July 09, 2018 9:52 AM [facility] SURGICAL PATHOLOGYon 019 SURGICAL PATHOLOGY Specimen #: [id number] * Submitting Physician: DEREK BENITEZ MD FINAL DIAGNOSIS Consultation case from [place], [place]: 1. Endometrium, curettings ([id number], 2 H&E-stained slides, 07/17/2017) - Secretory endometrium. 2. Right fallopian tube and ovary, right salpingo-oophorectomy ([id number], 18 H&E-stained and 6 IHC-stained slides, 05/31/2018) - A minute microscopical granulosa cell tumor, measuring 1.0 mm in greatest dimension. - Follicle cysts. 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 Uterus, cervix and left fallopian tube, hysterectomy and left salpingectomy (B): Cervix - Chronic cervicitis. Endometrium - Proliferative endometrium. Myometrium - Benign leiomyomas. Left fallopian tube - No significant pathologic abnormality. BY/carlota 06/30/2018 COMMENT Immunohistochemical staining performed at the [facility] on the right ovarian tumor shows weak positive for calretinin and inhibin and negative for CK7 and RODNEY, supporting the above interpretation. SYNOPTIC REPORT OF GOMES PATHOLOGIC FINDINGS 24 SLIDES ([id number]): Procedure: Simple hysterectomy Right salpingo-oophorectomy Left salpingectomy Specimen Integrity: Right ovary capsule intact Right fallopian tube serosa intact Left fallopian tube serosa intact Primary Tumor Site: Right ovary Ovarian Surface Involvement: Absent Fallopian Tube Surface Involvement: Absent Tumor Size: Greatest dimension: 0.1 cm Histologic Type: Granulosa cell tumor, adult type Histologic Grade: G1: Well differentiated Two-tier grading System: Low grade Implants: Not applicable/not sampled Involvement of other tissues/organs: Not identified Largest extrapelvic peritoneal focus, not applicable Peritoneal Ascitic Fluid, Not submitted/unknown Treatment Effect: No known presurgical therapy Regional Lymph Nodes: No nodes submitted or found Pathologic Stage Classification (pTNM, AJCC 8th ed) TNM Descriptors: Not applicable Primary Tumor (pT): pT1a: Tumor limited to 1 ovary (capsule intact) or fallopian tube, no tumor on ovarian or fallopian tube surface; no malignant cells in ascites or peritoneal washings Regional Lymph Nodes (pN): pNX: Cannot be assessed Distant Metastasis (pM): Not applicable/Not confirmed pathologically in this case Rojelio Watts M.D. Ph.D. (Electronic Signature) ____ SPECIMEN SUBMITTED A: 2 SLIDES ([id number]) B: 24 SLIDES ([id number]) CLINICAL DATA None provided. Date of Report: 06/30/2018 Date of Procedure: 06/28/2018 Date of Receipt: 06/29/2018 Submitted by: DEREK BENITEZ MD Location: MAIN Diagnostic interpretation performed at [facility], [address] [place] [address] [place] [address]. [facility] CNOVSPon 06-25-2018 CNOVSP Visit (SP) Office (GYNOSA) KATHRYN PADRON ([id number]) 1975 F Date Time Provider Department 06/25/18 8:40 AM DEREK BENITEZ During your visit today, we recorded the following information about you: Temperature Pulse Respiration Blood pressure 98.1 degrees 86/minute 18/minute 120/65 Weight Last Period 70.6 kg 05/25/18 Derek Benitez MD 06/27/2018 8:57 AM Signed Gynecologic Oncology [facility] - Major Consultation Re: Kathryn Padron CCF#: [id number] 06/25/[address] Vera for an opinion regarding ovarian cancer. My final recommendations will be communicated back to the requesting physician by way of shared Medical record or letter to requesting physician via US mail. Dear Kerwin Vera: Thank you for referring Kathryn for consultation. Briefly, she is a 43 year old female who has a past medical history of Abnormal uterine bleeding; Enlarged uterus; Ovarian cancer (HCC) (05/31/2018); Pelvic pain in female; and Uterine fibroid. She has a past surgical history that includes essure (2012) and laparoscopy diagnostic (06/2017). 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 PRIOR TREATMENT AND DATE: 1) 05/31/2018: MANJINDER, RSO, LS and cysto for enlarged uterus, menorrhagia - PATHOLOGY: IMAGIN05/22/2018 - PELVIC US LABS: No results found for: CA125 HEALTH MAINTENANCE: Last pap: 05/05/2018 - negative Last mammogram: Last colonoscopy: HISTORIES: PAST GYNECOLOGIC HISTORY: Obstetric History T0 L2 SAB0 TAB0 Ectopic0 Multiple0 Live Births0 LMP: No LMP recorded. PAST MEDICAL HISTORY Diagnosis Date - Abnormal uterine bleeding - Enlarged uterus - Ovarian cancer (HCC) 05/31/2018 Right granulosa cell - Pelvic pain in female - Uterine fibroid PAST SURGICAL HISTORY Procedure Laterality Date - ESSURE 2013 - HYSTERECTOMY HX 05/31/2018 MANJINDER, RSO, LS, CYSTO - LAPAROSCOPY DIAGNOSTIC 06/2017 FAMILY HISTORY Problem Relation Age of Onset - other (inflammatory bowel disease) Father - Alzheimer's Disease Paternal Grandmother - Cancer Paternal Grandfather Colon Family history of breast, ovarian, uterine or colon cancer: No Family history of VTE: No SOCIAL HISTORY Social History Substance Use Topics - Smoking status: Never Smoker - Smokeless tobacco: Not on file - Alcohol use No Occupation: Marital Status: REVIEW OF SYSTEMS: GENERAL: No recent weight loss, fever, chills, malaise or fatigue. HEENT: No changes in hearing or vision, frequent or severe headaches, nose bleeds or other nasal problems. NECK: No lumps, goiter, pain, significant neck swelling, or difficulty swallowing. RESPIRATORY: No shortness of breath, cough, wheezing, recent pneumonia (within last 6 weeks) or recent URI (within 2 weeks). CARDIOVASCULAR: No angina with activity or at rest, lower extremity edema, or palpitations. No recent UT (within 6 months), cardiac stent, cardiac surgery, gangrene, or PVD. No history of hypertension. BREAST: No breast lumps, skin changes, nipple discharge, or adenopathy. GI: No abdominal pain, nausea, vomiting, diarrhea, or constipation. No prior history of esophageal varicies or ascites. Patient denies drinking >2 alcoholic beverages a day. : No dysuria, gross hematuria, urinary frequency, urinary urgency, or incontinence. No history of renal failure, dialysis, or recent UTI (<6 weeks). MUSCULOSKELETAL: No muscle weakness or joint pain. SKIN: No skin lesions, rashes, or itching. PSYCH: No sleep disturbances, depression, bipolar disorder, drug dependency/history of drug dependency, or recent psychosocial stressors. HEMATOLOGY/LYMPHOLOGY : No prolonged bleeding, bruising easily, swollen nodes, or anemia. No prior history of a blood clot or clotting disorder. No prior history of a bleeding disorder. Not on chronic anticoagulant/platele t medications. ENDOCRINE: No cold or heat intolerance, polyuria, polydipsia, polyphagia, goiter, hot flashes or night sweats. No prior diagnosis of diabetes or thyroid disorder. No chronic steroid use. NEURO: No history of paralysis, stroke/TIA, seizures, tremors, syncope, or paresthesias. ECOG performance status is zero (fully active, able to carry on all pre-disease performance without restriction) OBJECTIVE: VITALS: BP 120/65 Pulse 86 Temp 36.7 ?C (98.1 ?F) (Oral) Resp 18 Wt 70.6 kg (155 lb 9.6 oz) LMP 05/25/2018 SpO2 99% GENERAL: Patient is a well developed, well nourished female. She is alert, oriented, pleasant and cooperative. SKIN: Color, texture, turgor normal. No rashes or lesions. HEENT: Normocephalic, atraumatic, mucus membranes moist and no lesions NECK: Supple, no adenopathy; thyroid symmetric, normal size, no bruits LUNGS: Clear to auscultation bilaterally. HEART: Regular rate and rhythm, no murmurs. BACK: No CVA tenderness or gross deformities. 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 It was small. We discussed overall prognosis, natural history and treatment options. We discussed that this tumor is small and tend to have excellent prognosis with low risk of recurrence. I do recommend CT scan to rule out metastatic disease. If negative, I do recommend surveillance with serial US. We discussed that even though the risk of recurrence is low, this cancer tend to have indolent course with late recurrence. Therefore, I do recommend terminologist indefinite follow up - Will obtain slides for review by [facility] - CT scan to rule out metastatic disease - Serial US - RTC in [address] is negative Total face to face time 60 minutes and more that 50% spent on counseling the patient and coordinating her care. Thank you for referring her for gynecologic oncology consultation. I will be in touch with you regarding her findings. 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 Discontinue saline lock post exam. If Pt. has a central line or IVAD, may access for administration according to line specific nursing protocol. Once exam is complete flush line and de-access according to line specific nursing protocol in the CT contrast administration guidelines link.Disp: 1 EachRfl: 0 [] enteric contrast (will be provided with radiology test)For CT CHESTABD/PEL W IVCON Routine order Administer, As Directed One Time Only, via Oral, Rectal, both Oral and Rectal, Enteric Tube, Stoma or Indwelling Catheter, Enteric Contrast as designated per enteric contrast guidelinesDisp: 1 EachRfl: 0 Follow-up and Disposition History Recorded Prescriptions as of 06/25/2018 Sig: IV CONTRAST (RADIOLOGY PROCED* CT Chest ABD/PEL-Inject, intr* ENTERIC CONTRAST (RADIOLOGY P* For CT CHESTABD/PEL W IVCON R* Problem List As Of Date: 06/25/2018 (None) Encounter Status:Closed by DEREK BENITEZ MD on 06/27/18 [facility] PROGRESSon 06-23-2018 PROGRESS HNO ID: [id number] Author: Liliam Jackson Service: (none) Author Type: Nurse Practitioner Type: Progress Notes Filed: 06/23/2018 11:38 AM Note Text: Chart prepped for upcoming appt with Dr. Benitez. Liliam Jackson, PAINTER BOTTOM.[facility] PROGRESS HNO ID: [id number] Author: Derek Benitez Service: (none) Author Type: Physician Type: Progress Notes Filed: 06/27/2018 8:57 AM Note Text: Gynecologic Oncology [facility] - Major Consultation Re: Kathryn Padron [facility]#: [id number] 06/25/[address] Vera for an opinion regarding ovarian cancer. My final recommendations will be communicated back to the requesting physician by way of shared Medical record or letter to requesting physician via US mail. Dear Kerwin Vera: Thank you for referring Kathryn for consultation. Briefly, she is a 43 year old female who has a past medical history of Abnormal uterine bleeding; Enlarged uterus; Ovarian cancer (HCC) (05/31/2018); Pelvic pain in female; and Uterine fibroid. She has a past surgical history that includes essure (2012) and laparoscopy diagnostic (06/2017). 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 PRIOR TREATMENT AND DATE: 1) 05/31/2018: MANJINDER, RSO, LS and cysto for enlarged uterus, menorrhagia - PATHOLOGY: IMAGIN05/22/2018 - PELVIC US LABS: No results found for: CA125 HEALTH MAINTENANCE: Last pap: 05/05/2018 - negative Last mammogram: Last colonoscopy: HISTORIES: PAST GYNECOLOGIC HISTORY: Obstetric History T0 L2 SAB0 TAB0 Ectopic0 Multiple0 Live Births0 LMP: No LMP recorded. PAST MEDICAL HISTORY Diagnosis Date - Abnormal uterine bleeding - Enlarged uterus - Ovarian cancer (HCC) 05/31/2018 Right granulosa cell - Pelvic pain in female - Uterine fibroid PAST SURGICAL HISTORY Procedure Laterality Date - ESSURE 2012 - HYSTERECTOMY HX 05/31/2018 MANJINDER, RSO, LS, CYSTO - LAPAROSCOPY DIAGNOSTIC 06/2017 FAMILY HISTORY Problem Relation Age of Onset - other (inflammatory bowel disease) Father - Alzheimer's Disease Paternal Grandmother - Cancer Paternal Grandfather Colon Family history of breast, ovarian, uterine or colon cancer: No Family history of VTE: No SOCIAL HISTORY Social History Substance Use Topics - Smoking status: Never Smoker - Smokeless tobacco: Not on file - Alcohol use No Occupation: Marital Status: REVIEW OF SYSTEMS: GENERAL: No recent weight loss, fever, chills, malaise or fatigue. HEENT: No changes in hearing or vision, frequent or severe headaches, nose bleeds or other nasal problems. NECK: No lumps, goiter, pain, significant neck swelling, or difficulty swallowing. RESPIRATORY: No shortness of breath, cough, wheezing, recent pneumonia (within last 6 weeks) or recent URI (within 2 weeks). CARDIOVASCULAR: No angina with activity or at rest, lower extremity edema, or palpitations. No recent UT (within 6 months), cardiac stent, cardiac surgery, gangrene, or PVD. No history of hypertension. BREAST: No breast lumps, skin changes, nipple discharge, or adenopathy. GI: No abdominal pain, nausea, vomiting, diarrhea, or constipation. No prior history of esophageal varicies or ascites. Patient denies drinking >2 alcoholic beverages a day. : No dysuria, gross hematuria, urinary frequency, urinary urgency, or incontinence. No history of renal failure, dialysis, or recent UTI (<6 weeks). MUSCULOSKELETAL: No muscle weakness or joint pain. SKIN: No skin lesions, rashes, or itching. PSYCH: No sleep disturbances, depression, bipolar disorder, drug dependency/history of drug dependency, or recent psychosocial stressors. HEMATOLOGY/LYMPHOLOGY : No prolonged bleeding, bruising easily, swollen nodes, or anemia. No prior history of a blood clot or clotting disorder. No prior history of a bleeding disorder. Not on chronic anticoagulant/platele t medications. ENDOCRINE: No cold or heat intolerance, polyuria, polydipsia, polyphagia, goiter, hot flashes or night sweats. No prior diagnosis of diabetes or thyroid disorder. No chronic steroid use. NEURO: No history of paralysis, stroke/TIA, seizures, tremors, syncope, or paresthesias. ECOG performance status is zero (fully active, able to carry on all pre-disease performance without restriction) OBJECTIVE: VITALS: BP 120/65 Pulse 86 Temp 36.7 ?C (98.1 ?F) (Oral) Resp 18 Wt 70.6 kg (155 lb 9.6 oz) LMP 05/25/2018 SpO2 99% GENERAL: Patient is a well developed, well nourished female. She is alert, oriented, pleasant and cooperative. SKIN: Color, texture, turgor normal. No rashes or lesions. HEENT: Normocephalic, atraumatic, mucus membranes moist and no lesions NECK: Supple, no adenopathy; thyroid symmetric, normal size, no bruits LUNGS: Clear to auscultation bilaterally. HEART: Regular rate and rhythm, no murmurs. BACK: No CVA tenderness or gross deformities. 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 It was small. We discussed overall prognosis, natural history and treatment options. We discussed that this tumor is small and tend to have excellent prognosis with low risk of recurrence. I do recommend CT scan to rule out metastatic disease. If negative, I do recommend surveillance with serial US. We discussed that even though the risk of recurrence is low, this cancer tend to have indolent course with late recurrence. Therefore, I do recommend jail indefinite follow up - Will obtain slides for review by [facility] - CT scan to rule out metastatic disease - Serial US - RTC in [address] is negative Total face to face time 60 minutes and more that 50% spent on counseling the patient and coordinating her care. Thank you for referring her for gynecologic oncology consultation. I will be in touch with you regarding her findings. Sincerely, Derek Benitez MD A letter and a copy of this office note were sent to: Kerwin Vera MD (TOUR PRODUCTION SUPERVISOR) CC: Mei Butt MD (PCP) [facility] Encounters Encounter Date Encounter Type Care Provider Facility Start: 07-01-2023 End: 07-01-2023 ambulatory KATHRYN ESCAMILLA Not Available Start: 11-19-[address] DOCTOR YOUNG Facility :[facility] Start: 10-02-2022 End: 10-03-[address] DOCTOR YOUNG Facility:[facility] Start: 06-18-2022 End: 06-18-[address] KERWIN VERA . Facility:[facility] Start: 04-08-2022 End: 04-09-[address] DOCTOR YOUNG Facility:[facility] Start: 07-21-2018 End: 07-21-2018 Patient encounter procedure DEREK BENITEZ [facility] Payers Date Payer Category Payer Unknown [id number] 2019 Unknown [id number] 1975 Unknown [id number] 2.16.84 [id number] 1975 Unknown [id number] 2.16.84 [id number] 1975 Unknown [id number] 2.16.84 [id number] 1975 Unknown [id number] 2.16.84 [id number] 1975 Unknown [id number] 2.16.84 [id number] Summary Purpose Family History No Family History Records FoundNo Family History Records FoundNo Family History Records FoundNo Family History Records Found Advance Directives No Advanced Directives Records FoundNo Advanced Directives Records FoundNo Advanced Directives Records FoundNo Advanced Directives Records Found Additional Source Comments INFORMATION SOURCE (unrecogn ized section and content) DATE CREATED AUTHOR 08/05/2018 [facility] DATE CREATED AUTHOR AUTHOR'S ORGANIZ ATION 02/27/2019 [facility] DATE CREATED AUTHOR AUTHOR'S ORGANIZ ATION 11/28/[address] [facility] DATE CREATED AUTHOR AUTHOR'S ORGANIZ ATION 07/02/2023 [facility] FOR RECORDS PERTAINING TO PATIENTS WHO ARE OR HAVE BEEN ENROLLED IN A CHEMICAL DEPENDENCY/SUBSTANCEABUSE PROGRAM, SOME INFORMATION MAY BE OMITTED. This clinical summary was aggregated from multiple sources. Caution should be exercised in using it in the provision of clinical care. This summary normalizes information from multiple sources, and as a consequence, information in this document may materially change the coding, format and clinical context of patient data. In addition, data may be omitted in some cases. CLINICAL DECISIONS SHOULD BE BASED ON THE PRIMARY CLINICAL RECORDS. [facility] [employer] provides no warranty or guarantee of the accuracy or completeness of information in this document.
== END 2023-09-09 08:22 | disposition home or self-care (01) ==
LOC: LAB 09-10 08:22
PROVIDERS: PCP Family Medicine
DX: D39.10 Neoplasm of uncertain behavior of unspecified ovary (principal)
CPT/HCPCS: 36415; 83520; 86336

== ENCOUNTER 2023-11-25 06:52 | Outpatient (OUT) | payer BC, SELFPAY ==
--- NOTE | 2023-11-25 | MM_ITS ---
Patient Name: TASH GARZA MR#: [id number] : 1975 Exam Date: 11/25/2023 Ordering Doctor: DR Casper Vera . RADIOLOGY REPORT PROCEDURE: MM TOMOSYNTHESIS SCREENING BI COMPARISON: MG MAMM SCREEN 3D NIKO CAD, 11/19/2022. MG MAMM SCREEN 3D NIKO CAD, 11/15/2021. MG MAMM SCREEN 3D NIKO CAD, 11/12/2020. MG MAMM SCREEN NIKO W CAD, 11/09/2017. INDICATIONS: Screening Calculator Name NCI Breast Cancer Risk Assessment Tool 5 Year Breast Cancer Risk 0.90% Lifetime Breast Cancer Risk 9.60% Personal Breast Cancer No Personal Ovarian Cancer Yes, 43 Treatments None Family Cancers Grandfather-paternal with colon cancer at age ~80. LOCATION: [facility] BREAST COMPOSITION: The breasts are heterogeneously dense,which may obscure small masses. FINDINGS: DIAGNOSTIC CATEGORY 1--NEGATIVE. RIGHT BREAST: No significant suspicious finding. No significant change has occurred. LEFT BREAST: No significant suspicious finding. No significant change has occurred. RECOMMENDATIONS: ROUTINE MAMMOGRAM AND CLINICAL EVALUATION IN 12 MONTHS. PLEASE NOTE: A NORMAL MAMMOGRAM DOES NOT EXCLUDE THE POSSIBILITY OF BREAST CANCER. A CLINICALLY SUSPICIOUS PALPABLE LUMP SHOULD BE BIOPSIED. Dictated by: Vincent Mcmanus M.D. on 11/26/2023 at 14:24 Approved by: Vincent Mcmanus M.D. on 11/26/2023 at 14:26
--- OUTSIDE RECORDS SUMMARY | 2023-11-25 06:54 | XMS_ITS | CCD ---
Author Organization [facility] Care Team Providers Care Affiliate Marketing Specialist Name Role Phone DEREK BENITEZ Attending Unavailable [...] Translations: [BEES] Propensity to adverse reactions (disorder) [facility] Repository (1 source) bee venom Drug allergy (disorder) [facility] Repository Problems Active Problems Problem Classification [...] : DR KERWIN VERA . Admission #: [id number] Family : DR PAREDES [facility] Order #: [id number] CLICK HERE TO VIEW EXAM RADIOLOGY REPORT PROCEDURE: MAMMOGRAM SCREENING 3D BILATERAL CAD COMPARISON: MG MAMM SCREEN 3D NIKO CAD, 11/15/2021. MG MAMM SCREEN 3D INKO CAD, 11/12/2020. MG MAMM SCREEN NIKO W CAD, 11/10/2019. MG MAMM SCREEN NIKO W CAD, 11/09/2017. INDICATIONS: Screening mammography Calculator Name NCI Breast Cancer Risk Assessment Tool 5 Year Breast Cancer Risk 0.80% Lifetime Breast Cancer Risk 9.70% Personal Breast Cancer No Personal Ovarian Cancer Yes, 43 Treatments None Family Cancers Grandfather-paternal with colon cancer at age 80. LOCATION: [facility] BREAST COMPOSITION: Heterogeneously dense,which may obscure [...] M.D. on 11/19/2022 at 14:02 Normal [facility] INHIBIN Bon 10-06-2022 Inhibin B <7.0 Normal [facility] Comment on above: Result Comment: Rishabh y Follicular <261.0 Late Follicular <286.0 Periovulatory <189.0 MidLuteal <164.0 End Luteal <107.0 Post Menopausal < 17.0 Inhibin B performed by AnsiteT(TM) Enzyme Linked Immunoassay methodology. Values obtained with different assay methods or kits cannot be used interchangeably. Performed By: #### I NHBNB #### [facility] [address] [place] [address] Dr. Socrates Aquino INHIBIN A, ULTRASENSITVEon 0 10-03-2022 Inhibin A, Ultrasensitive 0.4 pg/mL Normal [facility] Comment on above: Result Comment: Mens trual Phase Early Follicular <34.0 Late Follicular <99.0 Periovulatory 8.0-233.0 MidLuteal <145.0 End Luteal <145.0 Postmenopausal <4.0 Inhibin A performed by Incap Access Automated Immunoassay methodology. Values obtained with different assay methods or kits cannot be used interchangeably. Performed By: #### I NHIBIN #### [facility] [address] [address] [address] Socrates Aquino PAP ACOG PANEL 2: 30 to 65on 06-26-2022 . . Normal [facility] Comment on above: Result Comment: Perf ormed at: BA Performed By: #### 4 [id number] #### [facility] [address] [address] [address] Socrates Aquino Age Gdln ACOG Testing 30-65 [facility] Comment on above: Performed By: #### 4 [id number] #### [facility] [address] [address] [address] Socrates Aquino DIAGNOSIS: Comment Normal [facility] Comment on above: Result Comment: NEGA TIVE FOR INTRAEPITHELIAL LESION OR MALIGNANCY. Performed at: BA Performed By: #### 4 [id number] #### [facility] [address] [address] [address] Socrates Aquino HPV Aptima Negative Normal Negative [facility] Comment on above: Result Comment: This nucleic acid amplification test detects fourteen high-risk HPV types (16,18,31,33,35,39,45,51,52,56,58,59,66,68) without differentiation. Performed at: =G Performed By: #### 4 [id number] #### [facility] [address] [address] [address] Socrates Aquino HPV Genotype Reflex Comment Normal [facility] Comment on above: Result Comment: Crit eria not met, HPV Genotype not performed. Performed at: BA Performed By: #### 4 [id number] #### [facility] [address] [place] [address] Dr. Socrates Aquino Methodology: Comment Normal [facility] Comment on above: Result Comment: This liquid based ThinPrep(R) pap test was screened with the use of an image guided system. Performed at: WB Performed By: #### 4 [id number] #### [facility] [address] [place] [address] Dr. Socrates Aquino Note: Comment Normal [facility] Comment on above: Result Comment: The Pap smear is a screening test designed to aid in the detection of premalignant and malignant conditions of the uterine cervix. It is not a diagnostic procedure and should not be used as the sole means of detecting cervical cancer. Both false-positive and false-negative reports do occur. . Performed at: WB Performed By: #### 4 [id number] #### [facility] [address] [place] [address] Dr. Socrates Aquino Performed by: Comment Normal [facility] Comment on above: Result Comment: Brittany Campbell, Demurrage Man (ASCP) Performed at: BA Performed By: #### 4 [id number] #### [facility] [address] [place] [address] Dr. Socrates Aquino Specimen adequacy: Comment Normal [facility] Comment on above: Result Comment: Sati sfactory for evaluation. Endocervical and/or squamous metaplastic cells (endocervical component) are present. Performed at: BA Performed By: #### 4 [id number] #### [facility] [address] [place] [address] Dr. Socrates Aquino INHIBIN Bon 04-11-2022 Inhibin B <7.0 [facility] Comment on above: Result Comment: Rishabh y Follicular <261.0 Late Follicular <286.0 Periovulatory <189.0 MidLuteal <164.0 End Luteal <107.0 Post Menopausal < 17.0 Inhibin B performed by AnsiteT(TM) Enzyme Linked Immunoassay methodology. Values obtained with different assay methods or kits cannot be used interchangeably. Performed By: #### I NHBNB #### [facility] [address] [place] [address] Dr. Socrates Aquino INHIBIN A, ULTRASENSITVEon 1 Inhibin A, Ultrasensitive 0.8 pg/mL Normal [facility] Comment on above: Result Comment: Mens trual Phase Early Follicular <34.0 Late Follicular <99.0 Periovulatory 8.0-233.0 MidLuteal <145.0 End Luteal <145.0 Postmenopausal <4.0 Inhibin A performed by Incap Access Automated Immunoassay methodology. Values obtained with different assay methods or kits cannot be used interchangeably. Performed By: #### I NHIBIN #### [facility] [address] [address] [address] Socrates Aquino CNOVSPon 02-25-2019 CNOVS Visit (SP) Office (GYNOSA) KATHRYN PADRON ([id number]) 1975 F Date Time Provider Department 02/25/19 8:00 AM DEREK BENITEZ During your visit today, we recorded the following information about you: Temperature Pulse Respiration Blood pressure 98 degrees 68/minute 16/minute 107/73 Weight 71.8 kg Derek Benitez MD 02/27/2019 6:59 AM Signed Gynecologic Oncology [facility] Consultation Re: Kathryn Padron [facility]#: [id number] 02/26/2019 Dear Kerwin Vera: Thank you for [...] pathology slides FINAL DIAGNOSIS Consultation case from [facility], [place], [place]: 1. Endometrium, curettings ([id number], 2 HERMAN-stained slides, 07/17/2017) - Secretory endometrium. 2. Right fallopian tube and ovary, right salpingo-oophorectomy ([id number], 18 HERMAN-stained and 6 IHC-stained slides, [...] 06/30/2018 COMMENT Immunohistochemical staining performed at the [facility] on the right ovarian tumor shows weak positive for calretinin and inhibin and negative for CK7 and RODNEY, supporting the above interpretation. SYNOPTIC REPORT OF GOMES PATHOLOGIC FINDINGS 24 SLIDES ([id number]): ? ? ?Procedure: ? ? ? Simple [...] note were sent to: Kerwin Vera MD (CONTOUR PATH TAPE MILL OPERATOR) CC: Mei Butt MD (PCP) Referring Provider: DEREK BENITEZ [[id number]] Allergies As of Date: 02/25/2019 Noted Allergy [...] by DEREK BENITEZ MD on 02/27/19 Normal [facility] PROGRESSon 02-25-2019 PROGRESS HNO ID: [id number] Author: Derek Benitez Service: ? Author Type: Physician Type: Progress Notes Filed: 02/27/2019 6:59 AM Note Text: Gynecologic Oncology [facility] Consultation Re: Kathryn Padron [facility]#: [id number] 02/26/2019 Dear Kerwin Vera: Thank you for [...] pathology slides FINAL DIAGNOSIS Consultation case from [place], [place]: 1. Endometrium, curettings ([id number], 2 HERMAN-stained slides, 07/17/2017) - Secretory endometrium. 2. Right fallopian tube and ovary, right salpingo-oophorectomy ([id number], 18 HERMAN-stained and 6 IHC-stained slides, [...] 06/30/2018 COMMENT Immunohistochemical staining performed at the [facility] on the right ovarian tumor shows weak positive for calretinin and inhibin and negative for CK7 and RODNEY, supporting the above interpretation. SYNOPTIC REPORT OF GOMES PATHOLOGIC FINDINGS 24 SLIDES ([id number]): ? ? ?Procedure: ? ? ? Simple [...] note were sent to: Kerwin Vera MD (CONTOUR PATH TAPE MILL OPERATOR) CC: Mei Butt MD (PCP) Normal [facility] US-US PELVIS and TRANSVAG IM PORTon 08-26-2018 US-US PELVIS and TRANSVAG IMPORT Images were obtained outside of [facility] [id number] N Normal [facility] CNOVon 07-21-2018 CNOV Office Visit (GYNML) KATHRYN PADRON ([id number]) 1975 F Date Time Provider Department 07/21/18 10:15 AM DEREK BENITEZ GYN During your visit today, we recorded the following information about you: Temperature Pulse Blood pressure Weight 97.8 degrees 75/minute 122/80 71.8 kg Derek Benitez MD 07/21/2018 11:03 AM Signed Gynecologic Oncology [facility] Consultation Re: Kathryn Padron [facility]#: [id number] 07/21/2018 Dear Kerwin Vera: Thank you for [...] pathology slides FINAL DIAGNOSIS Consultation case from [place], [place]: 1. Endometrium, curettings ([id number], 2 HERMAN-stained slides, 07/17/2017) - Secretory endometrium. 2. Right fallopian tube and ovary, right salpingo-oophorectomy ([id number], 18 HERMAN-stained and 6 IHC-stained slides, [...] 06/30/2018 COMMENT Immunohistochemical staining performed at the [facility] on the right ovarian tumor shows weak positive for calretinin and inhibin and negative for CK7 and RODNEY, supporting the above interpretation. SYNOPTIC REPORT OF GOMES PATHOLOGIC FINDINGS 24 SLIDES ([id number]): ? ? ?Procedure: ? ? ? Simple [...] Olivas Zacamanda reports that she feels well. No abdominal [...] note were sent to: Kerwin Vera MD (CONTOUR PATH TAPE MILL OPERATOR) CC: Mei Butt MD (PCP) Referring Provider: DEREK BENITEZ [[id number]] Allergies As of Date: 07/21/2018 Noted Allergy [...] Status:Closed by DEREK BENITEZ MD on 07/21/18 [facility] PROGRESSon 07-15-2018 Protein mass conc HNO ID: [id number] Author: Derek Benitez Service: (none) Author Type: Physician Type: Progress Notes Filed: 07/21/2018 11:03 AM Note Text: Gynecologic Oncology [facility] Consultation Re: Kathryn Brendon Padron [facility]#: [id number] 07/21/2018 Dear Kerwin Vera: Thank you for [...] pathology slides FINAL DIAGNOSIS Consultation case from [place], [place]: 1. Endometrium, curettings ([id number], 2 HERMAN-stained slides, 07/17/2017) - Secretory endometrium. 2. Right fallopian tube and ovary, right salpingo-oophorectomy ([id number], 18 HERMAN-stained and 6 IHC-stained slides, [...] 06/30/2018 COMMENT Immunohistochemical staining performed at the [facility] on the right ovarian tumor shows weak positive for calretinin and inhibin and negative for CK7 and RODNEY, supporting the above interpretation. SYNOPTIC REPORT OF GOMES PATHOLOGIC FINDINGS 24 SLIDES ([id number]): ? ? ?Procedure: ? ? ? Simple [...] note were sent to: Kerwin Vera MD (CONTOUR PATH TAPE MILL OPERATOR) CC: Mei Butt MD (PCP) [facility] US-US PELVIS and TRANSVAG IM PORTon 07-14-2018 US-US PELVIS and TRANSVAG IMPORT Images were obtained outside of [facility] [id number] N [facility] CT ABD/PEL W IVCONon 019 CT ABD/PEL W IVCON * * *Final Report* * * DATE OF EXAM: Jul 09 2018 9:07AM [facility] 0530 - CT ABD/PEL W [...] any questions regarding this interpretation, please call [phone]. If you are unable to reach us at the number above, please feel free to contact [facility] at [phone]. [id number] N Normal [facility] CT CHEST W IVCONon 9 CT CHEST W IVCON * * *Final Report* * * DATE OF EXAM: Jul 09 2018 9:07AM [facility] 0539 - CT CHEST W [...] any questions regarding this interpretation, please call [phone]. If you are unable to reach us at the number above, please feel free to contact [facility] at [phone]. [id number] N Normal [facility] PROGRESSon 07-09-2018 PROGRESS HNO ID: [id number] Author: Sandy José Service: (none) Author Type: [...] José July 09, 2018 9:52 AM Normal [facility] SURGICAL PATHOLOGYon 019 SURGICAL PATHOLOGY Specimen #: [id number] * Submitting Physician: DEREK BENITEZ MD FINAL DIAGNOSIS Consultation case from [place], [place]: 1. Endometrium, curettings ([id number], 2 H&E-stained slides, 07/17/2017) - Secretory endometrium. 2. 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 - Follicle cysts. 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 Uterus, cervix and left fallopian tube, hysterectomy and left salpingectomy (B): Cervix - Chronic cervicitis. Endometrium - Proliferative endometrium. Myometrium - Benign leiomyomas. Left fallopian tube - No significant pathologic abnormality. YAJAIRA/carlota 06/30/2018 COMMENT Immunohistochemical staining performed at the [facility] on the right ovarian tumor shows weak positive for calretinin and inhibin and negative for CK7 and RODNEY, supporting the above interpretation. SYNOPTIC REPORT OF GOMES PATHOLOGIC FINDINGS 24 SLIDES ([id number]): Procedure: Simple hysterectomy Right salpingo-oophorectomy Left salpingectomy [...] Signature) ____ SPECIMEN SUBMITTED A: 2 SLIDES ([id number]) B: 24 SLIDES ([id number]) CLINICAL DATA None provided. Date of Report: 06/30/2018 Date of Procedure: 06/28/2018 Date of Receipt: 06/29/2018 Submitted by: DEREK BENITEZ MD Location: MAIN Diagnostic interpretation performed at [facility], [address] [place], [place] [address]lid [place], [facility] [id number]. Normal [facility] CNOVSPon 06-25-2018 CNOVSP Visit (SP) Office (GYNOSA) KATHRYN PADRON ([id number]) 1975 F Date Time Provider Department 06/25/18 8:40 AM DEREK BENITEZ During your visit today, we recorded the following information about you: Temperature Pulse Respiration Blood pressure 98.1 degrees 86/minute 18/minute 120/65 Weight Last Period 70.6 kg 05/25/18 Derek Benitez MD 06/27/2018 8:57 AM Signed Gynecologic Oncology [facility] Consultation Re: Kathryn Padron [facility]#: [id number] 06/25/[address] Vera for [...] lower extremity edema, or palpitations. No recent SD (within 6 months), cardiac stent, cardiac surgery, [...] with late recurrence. 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 Benitez. Liliam Jackson, FRUIT BUYER.[facility] PROGRESS HNO ID: [id number] Author: Derek Benitez Service: (none) Author Type: Physician Type: Progress Notes Filed: 06/27/2018 8:57 AM Note Text: Gynecologic Oncology [facility] Consultation Re: Kathryn Padron [facility]#: [id number] 06/25/[address] Vera for [...] lower extremity edema, or palpitations. No recent SD (within 6 months), cardiac stent, cardiac surgery, [...] with late recurrence. Therefore, I do recommend termite renewal inspector indefinite follow up - Will obtain slides [...] note were sent to: Kerwin Vera MD (CONTOUR PATH TAPE MILL OPERATOR) CC: Mei Butt MD (PCP) [facility] Encounters Encounter Date Encounter Type Care Provider Facility Start: 07-01-2023 End: 07-01-2023 ambulatory KATHRYN ESCAMILLA Not Available Start: 11-19-[address] DOCTOR YOUNG Facility :[facility] Start: 10-02-2022 End: 10-03-[address] DOCTOR YONUG Facility:[facility] Start: 06-18-2022 End: 06-18-[address] KERWIN VERA . Facility:[facility] Start: 04-08-2022 End: 04-09-[address] DOCTOR YOUNG Facility:[facility] Start: 07-21-2018 End: 07-21-2018 Patient encounter procedure DEREK BENITEZ [facility] Payers Date Payer Category Payer Unknown [id number] 2019 Unknown [id number] 1975 Unknown [id number] 2.16.84 [id number] 1975 Unknown [id number] 2.16.84 [id number] 1975 Unknown [id number] 2.16.84 [id number] 1975 Unknown [id number] 2.16.84 [id number] 1975 Unknown [id number] 2.16.84 [id number] Summary Purpose Family History No Family History Records FoundNo Family History Records FoundNo Family History Records FoundNo Family History Records Found Advance Directives No Advanced Directives Records FoundNo Advanced Directives Records FoundNo Advanced Directives Records FoundNo Advanced Directives Records Found Additional Source Comments INFORMATION SOURCE (unrecogn ized section and content) DATE CREATED AUTHOR 08/05/2018 [facility] DATE CREATED AUTHOR AUTHOR'S ORGANIZ ATION 02/27/2019 [facility] DATE CREATED AUTHOR AUTHOR'S ORGANIZ ATION 11/28/2022 [facility] DATE CREATED AUTHOR AUTHOR'S ORGANIZ ATION 07/02/2023 [facility] FOR RECORDS PERTAINING TO PATIENTS WHO ARE [...] BE BASED ON THE PRIMARY CLINICAL RECORDS. [employer] provides no warranty or guarantee of the accuracy or completeness of information in this document.
== END 2023-11-25 06:53 | disposition home or self-care (01) ==
LOC: MAMMO 06:52
PROVIDERS: PCP Family Medicine; Visit Provider Obstetrics & Gynecology
DX: Z12.31 Encounter for screening mammogram for malignant neoplasm of breast (principal); Z80.0 Family history of malignant neoplasm of digestive organs
CPT/HCPCS: 77063; 77067

== ENCOUNTER 2024-01-20 08:01 | Outpatient (OUT) | payer BC, SELFPAY ==
[2024-01-20 08:17] LABS: Basophils Absolute Auto 0.1 10^3/uL (0.0-0.1); Basophils Percent Auto 1.2 % (0.2-2.0); Eosinophils Absolute Auto 0.3 10^3/uL (0.0-0.7); Eosinophils Percent Auto 5.3 % (0.9-7.0); Hematocrit 39.8 % (36.0-48.0); Hemoglobin 13.2 g/dL (12.0-16.0); Immature Granulocytes Abs Auto 0.01 10^3/uL (0.00-0.03); Immature Granulocytes Pct Auto 0.2 % (0.0-0.5); Lymphocytes Absolute Auto 2.2 10^3/uL (1.2-3.8); Lymphocytes Percent Auto 36.9 % (20.5-60.0); Mean Corpuscular HGB Conc 33.2 g/dL (29.9-35.2); Mean Corpuscular Hemoglobin 29.2 pg (26.7-34.0); Mean Corpuscular Volume 88.1 fL (81.0-99.0); Mean Platelet Volume 9.9 fL (9.5-13.5); Monocytes Absolute Auto 0.3 10^3/uL (0.3-0.8); Monocytes Percent Auto 5.5 % (1.7-12.0); Neutrophils Absolute Auto 3.1 10^3/uL (1.4-6.5); Neutrophils Percent Auto 50.9 % (43.0-75.0); Platelet Count 301 10^3/uL (150-450); Red Blood Count 4.52 10^6/uL (4.20-5.40); Red Cell Distribution Width 13.1 % (11.0-15.0); White Blood Count 6.1 10^3/uL (4.0-11.0)
--- OUTSIDE RECORDS SUMMARY | 2024-01-20 08:21 | XMS_ITS | CCD ---
Author Organization [facility] Care Team Providers Care Art Critic Name Role Phone DEREK BENITEZ Attending Unavailable DEREK BENITEZ Referring Unavailable JAIDEN ., DR SURESH Attending Unavailable JAIDEN ., DR SURESH Admitting Unavailable JAIDEN ., DR SURESH Primary Care Unavailable JAIDEN ., DR SURESH Consulting Unavailable MISC, DR PAREDES Admitting Unavailable MISC, DR PAREDES Consulting Unavailable MISC, DOCTOR Attending Unavailable JAIDEN ., DR SURESH Primary Care Unavailable MISC, DR PAREDES Attending Unavailable MISC, DR PAREDES Admitting Unavailable JAIDEN ., DR SURESH Primary Care Unavailable JAIDEN ., DR SURESH Consulting Unavailable MISC, DR PAREDES Admitting Unavailable MISC, DR PAREDES Consulting Unavailable MISC, DOCTOR Attending Unavailable JAIDEN ., DR SURSEH Primary Care Unavailable KATHRYN ESCAMILLA Attending Unavailable Allergies Allergy Classification Reported Allergen(s) Allergy Type Date of Onset Reaction(s) Facility (1 source) Bee; Translations: [BEES] Propensity to adverse reactions (disorder) 9 [facility] Repository (1 source) bee venom Drug allergy (disorder) [facility] Repository Medications Current Medications Medication Drug Class(es) Dates Sig (Normalized) Sig (Original) estradiol 0.5 mg oral tablet (1 source) Estrogen Start: 01-18-2024 take 0.5 mg by mouth once daily Estradiol Active 0.5 MG PO Daily January 18, 2024 12:00am off 5 days; repeat cycle Multivitamin (Daily Multi-Vitamin) tablet (1 source) Start: 01-18-2024 take 1 tablet by mouth once daily Multivitamin (Daily Multi-Vitamin) tablet Active 1 TAB PO Daily January 18, 2024 12:00am phentermine hydrochloride 37.5 mg oral tablet (1 source) Sympathomimetic Amine Anorectic Start: 01-18-2024 take 1 tablet by mouth once daily 30 minutes after breakfast Phentermine (Adipex-P) 37.5 mg tablet Active 37.5 MG PO Daily January 18, 2024 12:00am must administer 30 minutes before or 1-2 hours after breakfast Problems Active Problems Problem Classification Problem Date Documented Da te Episodic/Chronic Neoplasms of unspecified nature or uncertain behavior (4 sources) 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 Admission #: [id number] Family : DR PAREDES [facility] Order #: [id number] CLICK HERE TO VIEW EXAM RADIOLOGY REPORT [...] colon cancer at age 82. LOCATION: [facility] BREAST COMPOSITION: Heterogeneously dense,which may obscure small [...] Mcmanus M.D. on 11/19/2022 at 14:02 Normal [facility] INHIBIN Bon 10-06-2022 Inhibin B <7.0 Normal [facility] Comment on above: Result Comment: Rishabh y Follicular <261.0 Late Follicular <286.0 Periovulatory <189.0 MidLuteal <164.0 End Luteal <107.0 Post Menopausal < 17.0 Inhibin B performed by [facility](TM) Enzyme Linked Immunoassay methodology. Values obtained with different assay methods or kits cannot be used interchangeably. Performed By: #### I NHBNB #### [facility] [address] [place] [address] Dr. Socrates Aquino INHIBIN A, ULTRASENSITVEon 0 10-03-2022 Inhibin A, Ultrasensitive 0.4 pg/mL Normal [facility] Comment on above: Result Comment: Mens trual Phase Early Follicular <34.0 Late Follicular <99.0 Periovulatory 8.0-233.0 MidLuteal <145.0 End Luteal <145.0 Postmenopausal <4.0 Inhibin A performed by [employer] Access Automated Immunoassay methodology. Values obtained with different assay methods or kits cannot be used interchangeably. Performed By: #### I NHIBIN #### [facility] [address] [place] [address] Dr. Socrates Aquino PAP ACOG PANEL 2: 30 to 65on 06-26-2022 . . Normal [facility] Comment on above: Result Comment: Perf ormed at: BA Performed By: #### [id number] #### [facility] [address] [place] [address] Dr. Socrates Aquino Age Gdln ACOG Testing 30-65 Normal [facility] Comment on above: Performed By: #### 4 [id number] #### [facility] [address] [place] [address] Dr. Socrates Aquino DIAGNOSIS: Comment Normal [facility] Comment on above: Result Comment: NEGA TIVE FOR INTRAEPITHELIAL LESION OR MALIGNANCY. Performed at: BA Performed By: #### 4 [id number] #### [facility] [address] [place] [address] Dr. Socrates Aquino HPV Aptima Negative Normal Negative [facility] Comment on above: Result Comment: This nucleic acid amplification test detects fourteen high-risk HPV types (16,18,31,33,35,39,45,51,52,56,58,59,66,68) without differentiation. Performed at: =G Performed By: #### 4 [id number] #### [facility] [address] [place] [address] Dr. Socrates Aquino HPV Genotype Reflex Comment Normal [facility] Comment on above: Result Comment: Crit eria not met, HPV Genotype not performed. Performed at: BA Performed By: #### 4 [id number] #### [facility] [address] [place] [address] Dr. Socrates Aquino Methodology: Comment Normal [facility] Comment on above: Result Comment: This liquid based ThinPrep(R) pap test was screened with the use of an image guided system. Performed at: WB Performed By: #### 4 [id number] #### [facility] [address] [place] [address] Dr. Socrates Aquino Note: Comment Normal [facility] Comment on above: Result Comment: The Pap smear is a screening test designed to aid in the detection of premalignant and malignant conditions of the uterine cervix. It is not a diagnostic procedure and should not be used as the sole means of detecting cervical cancer. Both false-positive and false-negative reports do occur. . Performed at: WB Performed By: #### 4 [id number] #### [facility] [address] [place] [address] Dr. Socrates Aquino Performed by: Comment Normal [facility] Comment on above: Result Comment: Brittany Campbell, Pilot Teacher (ASCP) Performed at: BA Performed By: #### 4 [id number] #### [facility] [address] [place] [address] Dr. Socrates Aquino Specimen adequacy: Comment Normal [facility] Comment on above: Result Comment: Sati sfactory for evaluation. Endocervical and/or squamous metaplastic cells (endocervical component) are present. Performed at: BA Performed By: #### 4 [id number] #### [facility] [address] [place] [address] Dr. Socrates Aquino INHIBIN Bon 04-11-2022 Inhibin B <7.0 Normal [facility] Comment on above: Result Comment: Rishabh y Follicular <261.0 Late Follicular <286.0 Periovulatory <189.0 MidLuteal <164.0 End Luteal <107.0 Post Menopausal < 17.0 Inhibin B performed by [employer](TM) Enzyme Linked Immunoassay methodology. Values obtained with different assay methods or kits cannot be used interchangeably. Performed By: #### I NHBNB #### [facility] [address] [place] [address] Dr. Socrates Aquino INHIBIN A, ULTRASENSITVEon 1 Inhibin A, Ultrasensitive 0.8 pg/mL [facility] Comment on above: Result Comment: Mens trual Phase Early Follicular <34.0 Late Follicular <99.0 Periovulatory 8.0-233.0 MidLuteal <145.0 End Luteal <145.0 Postmenopausal <4.0 Inhibin A performed by [employer] Access Automated Immunoassay methodology. Values obtained with different assay methods or kits cannot be used interchangeably. Performed By: #### I NHIBIN #### [facility] [address] [place] [address] Dr. Socrates Aquino CNOVSPon 02-25-2019 CNOVSP Visit (SP) Office (GYNOSA) WALLISER,KATHRYN Olivas ([id number]) 1975 F Date Time Provider Department 02/25/19 8:00 AM DEREK BENITEZ During your visit today, we recorded the following information about you: Temperature Pulse Respiration Blood pressure 98 degrees 68/minute 16/minute 107/73 Weight 71.8 kg Derek Benitez MD 02/27/2019 6:59 AM Signed Gynecologic Oncology [facility] Consultation Re: Kathryn Padron CCF#: [id number] 02/26/2019 Dear Kerwin Vera: Thank you for [...] pathology slides FINAL DIAGNOSIS Consultation case from [facility], [place], [place]: 1. Endometrium, curettings ([id number], 2 HERMAN-stained slides, 07/17/2017) - Secretory endometrium. 2. Right fallopian tube and ovary, right salpingo-oophorectomy ([id number], 18 HERMAN-stained and 6 IHC-stained slides, [...] 06/30/2018 COMMENT Immunohistochemical staining performed at the [facility] on the right ovarian tumor shows weak positive for calretinin and inhibin and negative for CK7 and RODNEY, supporting the above interpretation. SYNOPTIC REPORT OF GOMES PATHOLOGIC FINDINGS 24 SLIDES ([id number]): ? ? ?Procedure: ? ? ? Simple [...] note were sent to: Kerwin Vera MD (SENIOR FINANCE MANAGER) CC: Mei Butt MD (PCP) Referring Provider: DEREK BENITEZ [[id number]] Allergies As of Date: 02/25/2019 Noted Allergy [...] by DEREK BENITEZ MD on 02/27/19 Normal [facility] PROGRESSon 02-25-2019 PROGRESS HNO ID: [id number] Author: Derek Benitez Service: ? Author Type: Physician Type: Progress Notes Filed: 02/27/2019 6:59 AM Note Text: Gynecologic Oncology [facility] Consultation Re: Kathryn Olivas Vito CCF#: [id number] 02/26/2019 Dear Kerwin Vera: Thank you for [...] pathology slides FINAL DIAGNOSIS Consultation case from [place], [place]: 1. Endometrium, curettings ([id number], 2 HERMAN-stained slides, 07/17/2017) - Secretory endometrium. 2. Right fallopian tube and ovary, right salpingo-oophorectomy ([id number], 18 HERMAN-stained and 6 IHC-stained slides, [...] 06/30/2018 COMMENT Immunohistochemical staining performed at the [facility] on the right ovarian tumor shows weak positive for calretinin and inhibin and negative for CK7 and RODNEY, supporting the above interpretation. SYNOPTIC REPORT OF GOMES PATHOLOGIC FINDINGS 24 SLIDES ([id number]): ? ? ?Procedure: ? ? ? Simple [...] note were sent to: Kerwin Vera MD (SENIOR FINANCE MANAGER) CC: Mei Butt MD (PCP) Normal [facility] US-US PELVIS and TRANSVAG IM PORTon 08-26-2018 US-US PELVIS and TRANSVAG IMPORT Images were obtained outside of [facility] [id number] Normal [facility] CNOVon 07-21-2018 CNOV Office Visit (GYNML) KATHRYN PADRON ([id number]) 1975 F Date Time Provider Department 07/21/18 10:15 AM DEREK BENITEZ GYN During your visit today, we recorded the following information about you: Temperature Pulse Blood pressure Weight 97.8 degrees 75/minute 122/80 71.8 kg Derek Benitez MD 07/21/2018 11:03 AM Signed Gynecologic Oncology [facility] Consultation Re: Kathryn Padron CCF#: [id number] 07/21/2018 Dear Kerwin Vera: Thank you for [...] pathology slides FINAL DIAGNOSIS Consultation case from [place], [place]: 1. Endometrium, curettings ([id number], 2 HERMAN-stained slides, 07/17/2017) - Secretory endometrium. 2. Right fallopian tube and ovary, right salpingo-oophorectomy ([id number], 18 HERMAN-stained and 6 IHC-stained slides, [...] 06/30/2018 COMMENT Immunohistochemical staining performed at the [facility] on the right ovarian tumor shows weak positive for calretinin and inhibin and negative for CK7 and RODNEY, supporting the above interpretation. SYNOPTIC REPORT OF GOMES PATHOLOGIC FINDINGS 24 SLIDES ([id number]): ? ? ?Procedure: ? ? ? Simple [...] Kathryn Padron reports that she feels well. No abdominal [...] note were sent to: Kerwin Vera MD (SENIOR FINANCE MANAGER) CC: Mei Butt MD (PCP) Referring Provider: DEREK BENITEZ [[id number]] Allergies As of Date: 07/21/2018 Noted Allergy [...] Status:Closed by DEREK BENITEZ MD on 07/21/18 [facility] PROGRESSon 07-15-2018 Protein mass conc HNO ID: [id number] Author: Derek Benitez Service: (none) Author Type: Physician Type: Progress Notes Filed: 07/21/2018 11:03 AM Note Text: Gynecologic Oncology [facility] Consultation Re: Kathryn Padron CC#: [id number] 07/21/2018 Dear Kerwin Vera: Thank you for [...] pathology slides FINAL DIAGNOSIS Consultation case from [place], [place]: 1. Endometrium, curettings ([id number], 2 HERMAN-stained slides, 07/17/2017) - Secretory endometrium. 2. Right fallopian tube and ovary, right salpingo-oophorectomy ([id number], 18 HERMAN-stained and 6 IHC-stained slides, [...] 06/30/2018 COMMENT Immunohistochemical staining performed at the [facility] on the right ovarian tumor shows weak positive for calretinin and inhibin and negative for CK7 and RODNEY, supporting the above interpretation. SYNOPTIC REPORT OF GOMES PATHOLOGIC FINDINGS 24 SLIDES ([id number]): ? ? ?Procedure: ? ? ? Simple [...] Kathryn Padron reports that she feels well. No abdominal [...] this office note were sent to: Kerwin Vear MD (SENIOR FINANCE MANAGER) CC: Mei Butt MD (PCP) Normal [facility] US-US PELVIS and TRANSVAG IM PORTon 07-14-2018 US-US PELVIS and TRANSVAG IMPORT Images were obtained outside of [facility] [id number] N Normal [facility] CT ABD/PEL W IVCONon 019 CT ABD/PEL W IVCON * * *Final Report* * * DATE OF EXAM: Jul 09 2018 9:07AM [facility] 0530 - CT ABD/PEL W IVCON [...] any questions regarding this interpretation, please call [phone]. If you are unable to reach us at the number above, please feel free to contact [facility] at [phone]. [id number] N Normal [facility] CT CHEST W IVCONon 9 CT CHEST W IVCON * * *Final Report* * * DATE OF EXAM: Jul 09 2018 9:07AM [facility] 0539 - CT CHEST W IVCON [...] any questions regarding this interpretation, please call [phone]. If you are unable to reach us at the number above, please feel free to contact [facility] at [phone]. [id number] N Normal [facility] PROGRESSon 07-09-2018 PROGRESS HNO ID: [id number] Author: Sandy José Service: (none) Author Type: [...] José July 09, 2018 9:52 AM Normal [facility] SURGICAL PATHOLOGYon 019 SURGICAL PATHOLOGY Specimen #: [id number] * Submitting Physician: DEREK BENITEZ MD FINAL DIAGNOSIS Consultation case from [place], [place]: 1. Endometrium, curettings ([id number], 2 H&E-stained slides, 07/17/2017) - Secretory endometrium. 2. Right fallopian tube and ovary, right salpingo-oophorectomy ([id number], 18 H&E-stained and 6 IHC-stained slides, [...] 06/30/2018 COMMENT Immunohistochemical staining performed at the [facility] on the right ovarian tumor shows weak positive for calretinin and inhibin and negative for CK7 and RODNEY, supporting the above interpretation. SYNOPTIC REPORT OF GOMES PATHOLOGIC FINDINGS 24 SLIDES ([id number]): Procedure: Simple hysterectomy Right salpingo-oophorectomy Left salpingectomy [...] Signature) ____ SPECIMEN SUBMITTED A: 2 SLIDES ([id number]) B: 24 SLIDES ([id number]) CLINICAL DATA None provided. Date of Report: 06/30/2018 Date of Procedure: 06/28/2018 Date of Receipt: 06/29/2018 Submitted by: DEREK BENITEZ MD Location: MAIN Diagnostic interpretation performed at [facility], [address] [place] [address]. Normal [facility] CNOVSPon 06-25-2018 CNOVS Visit (SP) Office (GYNOSA) KATHRYN PADRON ([id number]) 1975 F Date Time Provider Department 06/25/18 8:40 AM DEREK BENITEZ During your visit today, we recorded the following information about you: Temperature Pulse Respiration Blood pressure 98.1 degrees 86/minute 18/minute 120/65 Weight Last Period 70.6 kg 05/25/18 Derek Benitez MD 06/27/2018 8:57 AM Signed Gynecologic Oncology [facility] Consultation Re: Kathryn Padron [facility]#: [id number] 06/25/[address] Vera for [...] lower extremity edema, or palpitations. No recent SC (within 6 months), cardiac stent, cardiac surgery, [...] with late recurrence. 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 Benitez. Liliam Jackson, RADIOTELEGRAPH OPERATOR SERVICER.[facility] PROGRESS HNO ID: [id number] Author: Derek Benitez Service: (none) Author Type: Physician Type: Progress Notes Filed: 06/27/2018 8:57 AM Note Text: Gynecologic Oncology [facility] Consultation Re: Kathryn Padron CCF#: [id number] 06/25/[address] Vera for [...] lower extremity edema, or palpitations. No recent SC (within 6 months), cardiac stent, cardiac surgery, [...] with late recurrence. Therefore, I do recommend supervisor drapery hanging indefinite follow up - Will obtain slides [...] note were sent to: Kerwin Vera MD (SENIOR FINANCE MANAGER) CC: Mei Butt MD (PCP) Normal [facility] Vital Signs Date Time Vital Sign Value Performing Clinician Guanaco beasley 01-18-2024 14:43-0400 Body height 158.75 cm [facility] 01-18-2024 14:43-0400 Body mass index (BMI) [Ratio] 34.5 kg/m2 [facility] 01-18-2024 14:43-0400 Body weight 87.08 kg [facility] 01-18-2024 14:43-0400 Diastolic blood pressure 79 mm[Hg] [facility] 01-18-2024 14:43-0400 Heart rate 71 /min [facility] 01-18-2024 14:43-0400 Systolic blood pressure 116 mm[Hg] [facility] Encounters Encounter Date Encounter Type Care Provider Facility Start: 01-18-2024 Patient encounter status [facility] Start: 01-18-2024 End: 01-18-2024 ambulatory [facility] Work Phone: Start: 01-18-2024 End: 01-18-2024 Encounter for general adult medical examination without abnormal findings [facility] Start: 01-18-2024 End: 01-18-2024 Patient encounter procedure [facility] Physician [facility] Work Phone: Start: 07-01-2023 End: 07-01-2023 ambulatory KATHRYN ESCAMILLA Not Available Start: 11-19-[address] DOCTOR YOUNG Facility :[facility] Start: 10-02-2022 End: 10-03-[address] DOCTOR YOUNG Facility:[facility] Start: 06-18-2022 End: 06-18-[address] KERWIN VERA . Facility:[facility] Start: 04-08-2022 End: 04-09-[address] DOCTOR YOUNG Facility:[facility] Start: 07-21-2018 End: 07-21-2018 Patient encounter procedure DEREK BENITEZ [facility] Plan of Treatment Date Care Activity Detail Author Comprehensive metabo lic 1999 panel - Serum or Plasma [facility] enter [facility] Payers Date Payer Category Payer Unknown [id number] 2019 Unknown [id number] 1975 Unknown [id number] 2.16.84 [id number] 1975 Unknown [id number] 2.16.84 [id number] 1975 Unknown [id number] 2.16.84 [id number] 1975 Unknown [id number] 2.16.84 [id number] 1975 Unknown [id number] 2.16.84 [id number] Social History Date Type Detail Facility Start[facility] Start: 1975 Sex Assigned At Female F [facility] Evaluation note Note Date & Type Note Facility Evaluation note Diagnosis Onset Date Obesity acute Wellness examination acute [facility] Work Phone: Summary Purpose Family History Relationship Condition Age at Onset Recorded Date/T tristin paternal grandfather Malignant neoplasm Unknown maternal grandfather Heart disease Unknown Advance Directives Advance Directive Response Recorded Date/ Time Advance Directives No January 10 1:32pm Chief Complaint and Reason for Visit Chief Complaint wellness Reason for Visit Obesity Wellness examination Additional Source Comments INFORMATION SOURCE (unrecogn ized section and content) DATE CREATED AUTHOR 08/05/2018 [facility] DATE CREATED AUTHOR AUTHOR'S ORGANIZ ATION 02/27/2019 [facility] DATE CREATED AUTHOR AUTHOR'S ORGANIZ ATION 11/28/2022 [facility] DATE CREATED AUTHOR AUTHOR'S ORGANIZ ATION 07/02/2023 [facility] [employer] Care Teams (unrecognized sec tion and content) Team Status: Active Member Role Status Dates Mei Butt MD Primary Care Provider Active Team Status: Inactive Member Role Status Dates Mei Butt MD Primary Care Provide r, Attending Provider Active Start: January 18, 2024 End: January 18, 2024 Goals (unrecognized section and content) Goals may be documented in a n alternate section FOR RECORDS PERTAINING TO PATIENTS WHO ARE [...] BE BASED ON THE PRIMARY CLINICAL RECORDS. [facility] [employer] provides no warranty or guarantee of the accuracy or completeness of information in this document.
[2024-01-20 09:19] LABS: Alanine Aminotransferase 21 U/L (14-59); Albumin Globulin Ratio 1.3; Alkaline Phosphatase 86 U/L (46-116); Anion Gap 12.4; Aspartate Amino Transferase 17 U/L (15-37); BUN Creatinine Ratio 20.7; Calcium 9.3 mg/dL (8.5-10.1); Carbon Dioxide 28.5 mmol/L (21.0-32.0); Chloride 106 mmol/L (98-107); Cholesterol 211 mg/dL (<=200); Estimated GFR (African America >60 (>=60); Estimated GFR (Non-African Ame >60 (>=60); Globulin 3.2 g/dL; Glucose 94 mg/dL (74-106); HDL Cholesterol 70 mg/dL (40-60); Potassium 3.9 mmol/L (3.5-5.1); Sodium 143 mmol/L (136-145); Thyroid Stimulating Hormone 2.126 uIU/mL (0.358-3.740); Total Protein 7.2 g/dL (6.4-8.2); Triglycerides 92 mg/dL (<=150); VLDL CHOLESTEROL 18.4 mg/dL
[2024-01-20 11:31] LABS: Estimated Average Glucose 94 mg/dL; Glycohemoglobin A1C 4.9 % (4.5-6.2)
== END 2024-01-20 08:02 | disposition home or self-care (01) ==
LOC: LAB 08:01
PROVIDERS: PCP Family Medicine; Visit Provider Family Medicine
DX: Z00.00 Encounter for general adult medical examination without abnormal findings (principal)
CPT/HCPCS: 36415; 80053; 80061; 83036; 84443; 85025

== ENCOUNTER 2024-07-04 20:26 | Outpatient (REF) | payer BC, SELFPAY ==
--- OUTSIDE RECORDS SUMMARY | 2024-07-04 20:37 | XMS_ITS | CCD ---
Author Organization [facility] Care Team Providers Care Mill Dresser Name Role Phone DEREK BENITEZ Attending Unavailable [...] Primary Care Unavailable KATHRYN ESCAMILLA Attending Unavailable Mei Butt MD Primary Care Provider Allergies Allergy Classification Reported Allergen(s) Allergy Type Date of Onset Reaction(s) Facility (1 source) Bee; Translations: [BEES] Propensity to adverse reactions (disorder) 9 [facility] Repository (1 source) bee venom Drug allergy (disorder) [facility] Repository (3 sources) Honey bee venom Allergy to substance 9 [facility] Work Phone: Medications Current Medications Medication Drug Class(es) Dates Sig (Normalized) Sig (Original) ascorbic acid 60 mg / beta carotene 5000 unt / copper sulfate 40 mg / dl-alpha tocopheryl acetate 30 unt / sodium selenite 0.04 mg / zinc oxide 40 mg oral tablet (3 sources) Vitamin C Multiple Vitamin (Multivitamin Adult) tablet 1 (one) time each day at the same time Active estradiol 0.5 mg oral tablet (7 sources) Estrogen Start: 01-18-2024 take 0.5 mg by mouth once daily Estradiol Active 0.5 MG PO Daily January 18, 2024 12:00am off 5 days; repeat cycle Multivitamin (Daily Multi-Vitamin) tablet (4 sources) Start: 01-18-2024 take 1 tablet by mouth once daily Multivitamin (Daily Multi-Vitamin) tablet Active 1 TAB PO Daily January 18, 2024 12:00am Completed/Discontinued Medications Medication Drug Class(es) Dates Sig (Normalized) Sig (Original) phentermine hydrochloride 37.5 mg oral tablet (10 sources) Sympathomimetic Amine Anorectic Start: 01-18-2024 End: 04-20-2024 take 1 tablet by mouth once daily 30 minutes after breakfast Phentermine (Adipex-P) 37.5 mg tablet Discontinued 37.5 MG PO Daily February 18, 2024 8:55am March 21, 2024 9:19am must administer 30 minutes before or 1-2 hours after breakfast Problems Active Problems Problem Classification Problem Date Documented Da te Episodic/Chronic Neoplasms of unspecified nature or uncertain behavior (4 sources) 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; Translations: [NEOPLASM UNCERT BEHAVIOR UNS OVARY] Onset: 10-02-2022 Episodic Other nutritional; endocrine; and metabolic disorders (13 sources) Obesity; Translations: [Obesity, unspecified] 01-18-2024 Chronic Other nutritional; endocrine; and metabolic disorders (6 sources) Obesity, unspecified; Translations: [Obesity, unspecified] 01-18-2024 Chronic Other screening for suspected conditions (not mental disorders or infectious disease) (6 sources) Encounter for screening for malignant neoplasm of cervix; Translations: [Patient encounter status] Onset: 06-18-2022 Episodic Past or Other Problems Problem Classification Problem Date Documented Date Episodic/Chronic Immunizations and screening for infectious disease (1 source) Encounter for screening for human papillomavirus (HPV); Translations: [ENC SCREENING HUMAN PAPILLOMAVIRUS] Onset: 06-20-2022 Episodic Results Test Name Value Interpretation Reference Range Facility Basophils Auto (Bld) [#/Vol] on 01-20-2024 Basophils (Bld) [#/Vol] 0.1 10 3/uL 0.0-0.1 [facility] Basophils/100 WBC Auto (Bld) on 01-20-2024 Basophils/100 WBC (Bld) 1.2 % 0.2-2.0 [facility] Cholesterol in LDL Calc [Mas s/Vol]on 01-20-2024 Cholesterol in LDL [Mass/Vol] 123.0 mg/dL [facility] Comment on above: <100 mg/dl [id number] 0-129 mg/dl NEAR OR ABOVE [id number] mg/dl BORDERLINE [id number] mg/dl HIGH>190 mg/dl VERY HIGH Cholesterol in VLDL Calc [Ma ss/Vol]on 01-20-2024 Cholesterol in VLDL [Mass/Vol] 18.4 mg/dL [facility] Eosinophils/100 WBC Auto (Bl d)on 01-20-2024 Eosinophils/100 WBC (Bld) 5.3 % 0.9-7.0 [facility] Erythrocyte distribution wid th Auto (RBC) [Ratio]on 01-20-2024 Erythrocyte distribution width (RBC) [Ratio] 13.1 % 11.0-15.0 [facility] Estimated glomerular filtrat ion rate (GFR) non- Americanon 01-20-2024 GFR/1.73 sq M.predicted among non-blacks MDRD (S/P/Bld) [Vol rate/Area] mL/min/{1.73_m2} >=60 [facility] Globulin Calc (S) [Mass/Vol] on 01-20-2024 Globulin (S) [Mass/Vol] 3.2 g/dL [facility] Glucose mean value [Mass/vol ume] in Blood Estimated from glycated hemoglobinon 01-20-2024 Average glucose Estimated from glycated hemoglobin (Bld) [Mass/Vol] 94 mg/dL [facility] Hematocrit Auto (Bld) [Volum e fraction]on 01-20-2024 Hematocrit (Bld) [Volume fraction] 39.8 % 36.0-48.0 [facility] Hemoglobin [Mass/volume] in Bloodon 01-20-2024 Hemoglobin (Bld) [Mass/Vol] 13.2 g/dL 12.0-16.0 [facility] Laboratory - Chemistry and C hemistry - challengeon 01-20-2024 Albumin [Mass/Vol] 4.0 g/dL 3.4-5.0 [facility] ALP [Catalytic activity/Vol] 86 U/L 46-116 [facility] ALT [Catalytic activity/Vol] 21 U/L 14-59 [facility] AST [Catalytic activity/Vol] 17 U/L 15-37 [facility] Bilirubin [Mass/Vol] 1.0 mg/dL 0.2-1.0 [facility] Calcium [Mass/Vol] 9.3 mg/dL 8.5-10.1 [facility] Chloride [Moles/Vol] 106 mmol/L 98-107 [facility] Cholesterol [Mass/Vol] 211 mg/dL High <=200 [facility] Cholesterol in HDL [Mass/Vol] 70 mg/dL High 40-60 [facility] Comment on above: > or =60 mg/dl - LOW CARDIOVASCULAR RISK<40 mg/dl - HIGH CARDIOVASCULAR RISK CO2 [Moles/Vol] 28.5 mmol/L 21.0-32.0 [facility] Creatinine [Mass/Vol] 0.92 mg/dL 0.55-1.02 [facility] GFR/1.73 sq M.predicted MDRD (S/P/Bld) [Vol rate/Area] mL/min/{1.73_m2} >=60 [facility] Glucose [Mass/Vol] 94 mg/dL 74-106 [facility] Potassium [Moles/Vol] 3.9 mmol/L 3.5-5.1 [facility] Protein [Mass/Vol] 7.2 g/dL 6.4-8.2 [facility] Sodium [Moles/Vol] 143 mmol/L 136-145 [facility] Triglyceride [Mass/Vol] 92 mg/dL <=150 [facility] TSH Qn 2.126 m[IU]/L 0.358-3.740 [facility] Urea nitrogen [Mass/Vol] 19.0 mg/dL High 7.0-18.0 [facility] Urea nitrogen/Creatinine [Mass ratio] 20.7 mg/mg [facility] Laboratory - Hematology and Cell countson 01-20-2024 HbA1c (Bld) [Mass fraction] 4.9 % 4.5-6.2 [facility] Comment on above: ADA RECOMMENDED LIMI T 4.0 - 6.0ADA THERAPEUTIC TARGET < 7.0ACTION SUGGESTED> 7.0 Immature granulocytes/100 WBC (Bld) 0.2 % 0.0-0.5 [facility] Leukocytes [#/volume] correc dillon for nucleated erythrocytes in Blood by Automated counon 01-20-2024 WBC corrected for nucl RBC Auto (Bld) [#/Vol] 6.1 10 3/uL 4.0-11.0 [facility] Lymphocytes Auto (Bld) [#/Vo l]on 01-20-2024 Lymphocytes (Bld) [#/Vol] 2.2 10 3/uL 1.2-3.8 [facility] Lymphocytes/100 WBC Auto (Bl d)on 01-20-2024 Lymphocytes/100 WBC (Bld) 36.9 % 20.5-60.0 [facility] MCH Auto (RBC) [Entitic mass ]on 01-20-2024 MCH (RBC) [Entitic mass] 29.2 pg 26.7-34.0 [facility] MCHC Auto (RBC) [Mass/Vol]on 01-20-2024 MCHC (RBC) [Mass/Vol] 33.2 g/dL 29.9-35.2 [facility] MCV Auto (RBC) [Entitic vol] on 01-20-2024 MCV (RBC) [Entitic vol] 88.1 fL 81.0-99.0 [facility] Monocytes Auto (Bld) [#/Vol] on 01-20-2024 Monocytes (Bld) [#/Vol] 0.3 10 3/uL 0.3-0.8 [facility] Monocytes/100 WBC Auto (Bld) on 01-20-2024 Monocytes/100 WBC (Bld) 5.5 % 1.7-12.0 [facility] Neutrophils Auto (Bld) [#/Vo l]on 01-20-2024 Neutrophils (Bld) [#/Vol] 3.1 10 3/uL 1.4-6.5 [facility] Neutrophils/100 WBC Auto (Bl d)on 01-20-2024 Neutrophils/100 WBC (Bld) 50.9 % 43.0-75.0 [facility] No Panel Informationon 01-19 Eosinophils # (Auto) 0.3 10 3/uL 0.0-0.7 [facility] Immature Granulocyte # (Auto) 0.01 10 3/uL 0.00-0.03 [facility] Platelet mean volume Auto (B ld) [Entitic vol]on 01-20-2024 Platelet mean volume (Bld) [Entitic vol] 9.9 fL 9.5-13.5 [facility] Platelets Auto (Bld) [#/Vol] on 01-20-2024 Platelets (Bld) [#/Vol] 301 10 3/uL 150-450 [facility] RBC Auto (Bld) [#/Vol]on RBC (Bld) [#/Vol] 4.52 10 6/uL 4.20-5.40 [facility] Serum or plasma albumin/glob ulin mass ratioon 01-20-2024 Albumin/Globulin [Mass ratio] 1.3 {ratio} [facility] Serum or plasma anion gap de terminationon 01-20-2024 Anion gap [Moles/Vol] 12.4 mmol/L [facility] Serum or plasma total choles terol/high density lipoprotein (HDL) cholesterol mass everardo 01-20-2024 Cholesterol.total/Cho lesterol in HDL [Mass ratio] 3.0 {ratio} [facility] Comment on above: 3.3 - 4.4 LOW RISK4. 4 - 7.1 AVERAGE RISK7.1 - 11.0 MODERATE RISK>11.0 HIGH RISK MG MAMM SCREEN 3D NIKO CADon 11-19-2022 MG MAMM SCREEN 3D NIKO CAD Patient: KATHRYN PADRON Exam Date: 11/19/2022 : 1975 Gender:F Ordering : DR KERWIN VERA . Admission #: [id number] Family : DR PAREDES [facility] [place] Order #: [id number] CLICK HERE TO VIEW EXAM RADIOLOGY REPORT [...] colon cancer at age 82. LOCATION: [facility] BREAST COMPOSITION: Heterogeneously dense,which may obscure small [...] Mcmanus M.D. on 11/19/2022 at 14:02 Normal [facility] INHIBIN Bon 10-06-2022 Inhibin B <7.0 Normal [facility] Comment on above: Result Comment: Rishabh y Follicular <261.0 Late Follicular <286.0 Periovulatory <189.0 MidLuteal <164.0 End Luteal <107.0 Post Menopausal < 17.0 Inhibin B performed by [facility](TM) Enzyme Linked Immunoassay methodology. Values obtained with different assay methods or kits cannot be used interchangeably. Performed By: #### I NHBNB #### [facility] [address] [place] [address] Dr. Socrates Aquino INHIBIN A, ULTRASENSITVEon 0 10-03-2022 Inhibin A, Ultrasensitive 0.4 pg/mL Normal [facility] Comment on above: Result Comment: Mens trual Phase Early Follicular <34.0 Late Follicular <99.0 Periovulatory 8.0-233.0 MidLuteal <145.0 End Luteal <145.0 Postmenopausal <4.0 Inhibin A performed by [employer] Automated Immunoassay methodology. Values obtained with different assay methods or kits cannot be used interchangeably. Performed By: #### I NHIBIN #### [facility] [address] [place] [address] Dr. Socrates Aquino PAP ACOG PANEL 2: 30 to 65on 06-26-2022 . . Normal [facility] Comment on above: Result Comment: Perf ormed at: BA Performed By: #### 4 [id number] #### [facility] [address] [address] [address] Socrates Aquino Age Gdln ACOG Testing 30-65 Normal [facility] Comment on above: Performed By: #### 4 [id number] #### [facility] [address] [address] [address] Socrates Aquino DIAGNOSIS: Comment Normal [facility] Comment on above: Result Comment: NEGA TIVE FOR INTRAEPITHELIAL LESION OR MALIGNANCY. Performed at: BA Performed By: #### 4 [id number] #### [facility] [address] [place] [address] Dr. Socrates Aquino HPV Aptima Negative Normal Negative [facility] Comment on above: Result Comment: This nucleic acid amplification test detects fourteen high-risk HPV types (16,18,31,33,35,39,45,51,52,56,58,59,66,68) without differentiation. Performed at: =G Performed By: #### 4 [id number] #### [facility] [address] [address] [address] Socrates Aquino HPV Genotype Reflex Comment Normal [facility] Comment on above: Result Comment: Crit eria not met, HPV Genotype not performed. Performed at: BA Performed By: #### 4 [id number] #### [facility] [address] [address] [address] Socrates Aquino Methodology: Comment Normal [facility] Comment on above: Result Comment: This liquid based ThinPrep(R) pap test was screened with the use of an image guided system. Performed at: WB Performed By: #### [id number] #### [facility] [address] [place] [address] Dr. Socrates Aquino Note: Comment Normal [facility] Comment on above: Result Comment: The Pap smear is a screening test designed to aid in the detection of premalignant and malignant conditions of the uterine cervix. It is not a diagnostic procedure and should not be used as the sole means of detecting cervical cancer. Both false-positive and false-negative reports do occur. . Performed at: WB Performed By: #### [id number] #### [facility] [address] [place] [address] Dr. Socrates Aquino Performed by: Comment Normal [facility] Comment on above: Result Comment: Brittany Campbell, Legal Specialist (ASCP) Performed at: BA Performed By: #### 4 [id number] #### [facility] [address] [place] [address] Dr. Socrates Aquino Specimen adequacy: Comment Normal [facility] Comment on above: Result Comment: Sati sfactory for evaluation. Endocervical and/or squamous metaplastic cells (endocervical component) are present. Performed at: BA Performed By: #### 4 [id number] #### [facility] [address] [place] [address] Dr. Socrates Aquino INHIBIN Bon 04-11-2022 Inhibin B <7.0 [facility] Comment on above: Result Comment: Rishabh y Follicular <261.0 Late Follicular <286.0 Periovulatory <189.0 MidLuteal <164.0 End Luteal <107.0 Post Menopausal < 17.0 Inhibin B performed by [employer](TM) Enzyme Linked Immunoassay methodology. Values obtained with different assay methods or kits cannot be used interchangeably. Performed By: #### I NHBNB #### [facility] [address] [place] [address] Dr. Socrates Auqino INHIBIN A, ULTRASENSITVEon 1 Inhibin A, Ultrasensitive 0.8 pg/mL [facility] Comment on above: Result Comment: Mens trual Phase Early Follicular <34.0 Late Follicular <99.0 Periovulatory 8.0-233.0 MidLuteal <145.0 End Luteal <145.0 Postmenopausal <4.0 Inhibin A performed by [employer] Automated Immunoassay methodology. Values obtained with different assay methods or kits cannot be used interchangeably. Performed By: #### I NHIBIN #### [facility] [address] [place] [address] Dr. Socrates Aquino CNOVSPon 02-25-2019 CNOVSP Visit (SP) Office (GYNOSA) KATHRYN PADRON ([id number]) 1975 F Date Time Provider Department 02/25/19 8:00 AM DEREK BENITEZ During your visit today, we recorded the following information about you: Temperature Pulse Respiration Blood pressure 98 degrees 68/minute 16/minute 107/73 Weight 71.8 kg Derek Benitez MD 02/27/2019 6:59 AM Signed Gynecologic Oncology [facility] Consultation Re: Kathryn Padron [facility]#: [id number] 02/26/2019 Dear Kerwin Vera: Thank you for [...] pathology slides FINAL DIAGNOSIS Consultation case from [place], [place]: 1. Endometrium, curettings ([id number], 2 HERMAN-stained slides, 07/17/2017) - Secretory endometrium. 2. Right fallopian tube and ovary, right salpingo-oophorectomy ([id number], 18 HERMAN-stained and 6 IHC-stained slides, [...] at the [facility] on the right ovarian tumor shows weak positive for calretinin and inhibin and negative for CK7 and RODNEY, supporting the above interpretation. SYNOPTIC REPORT OF GOMES PATHOLOGIC FINDINGS 24 SLIDES ([id number]): ? ? ?Procedure: ? ? ? Simple [...] note were sent to: Kerwin Vera MD (CIRCULATION LIBRARIAN) CC: Mei Butt MD (PCP) Referring Provider: DEREK BENITEZ [[id number]] Allergies As of Date: 02/25/2019 Noted Allergy [...] by DEREK BENITEZ MD on 02/27/19 [facility] PROGRESSon 02-25-2019 PROGRESS HNO ID: [id number] Author: Derek Benitez Service: ? Author Type: Physician Type: Progress Notes Filed: 02/27/2019 6:59 AM Note Text: Gynecologic Oncology [facility] Consultation Re: Kathryn Padron [facility]#: [id number] 02/26/2019 Dear Kerwin Vera: Thank you for [...] pathology slides FINAL DIAGNOSIS Consultation case from [place], [place]: 1. Endometrium, curettings ([id number], 2 HERMAN-stained slides, 07/17/2017) - Secretory endometrium. 2. Right fallopian tube and ovary, right salpingo-oophorectomy ([id number], 18 HERMAN-stained and 6 IHC-stained slides, [...] at the [facility] on the right ovarian tumor shows weak positive for calretinin and inhibin and negative for CK7 and RODNEY, supporting the above interpretation. SYNOPTIC REPORT OF GOMES PATHOLOGIC FINDINGS 24 SLIDES ([id number]): ? ? ?Procedure: ? ? ? Simple [...] note were sent to: Kerwin Vera MD (CIRCULATION LIBRARIAN) CC: Mei Butt MD (PCP) [facility] US-US PELVIS and TRANSVAG IM PORTon 08-26-2018 US-US PELVIS and TRANSVAG IMPORT Images were obtained outside of [facility] [id number] N [facility] CNOVon 07-21-2018 CNOV Office Visit (GYNML) KATHRYN PADRON ([id number]) 1975 F Date Time Provider Department 07/21/18 10:15 AM DEREK BENITEZ GYNRENO During your visit today, we recorded the following information about you: Temperature Pulse Blood pressure Weight 97.8 degrees 75/minute 122/80 71.8 kg Derek Benitez MD 07/21/2018 11:03 AM Signed Gynecologic Oncology [facility] Consultation Re: Kathryn Padron [facility]#: [id number] 07/21/2018 Dear Kerwin Vera: Thank you for referring Kathrny for consultation. Briefly, she is a 43 [...] pathology slides FINAL DIAGNOSIS Consultation case from [facility], [place], [place]: 1. Endometrium, curettings ([id number], 2 HERMAN-stained slides, 07/17/2017) - Secretory endometrium. 2. Right fallopian tube and ovary, right salpingo-oophorectomy ([id number], 18 HERMAN-stained and 6 IHC-stained slides, [...] at the [facility] on the right ovarian tumor shows weak positive for calretinin and inhibin and negative for CK7 and RODNEY, supporting the above interpretation. SYNOPTIC REPORT OF GOMES PATHOLOGIC FINDINGS 24 SLIDES ([id number]): ? ? ?Procedure: ? ? ? Simple [...] note were sent to: Kerwin Vera MD (CIRCULATION LIBRARIAN) CC: Mei Butt MD (PCP) Referring Provider: DEREK BENITEZ [[id number]] Allergies As of Date: 07/21/2018 Noted Allergy [...] Status:Closed by DEREK BENITEZ MD on 07/21/18 [facility] PROGRESSon 07-15-2018 Protein mass conc HNO ID: [id number] Author: Derke Benitez Service: (none) Author Type: Physician Type: Progress Notes Filed: 07/21/2018 11:03 AM Note Text: Gynecologic Oncology [facility] Consultation Re: Kathryn Olivas Vito [facility]#: [id number] 07/21/2018 Dear Kerwin Vera: Thank you for [...] pathology slides FINAL DIAGNOSIS Consultation case from [place], [place]: 1. Endometrium, curettings ([id number], 2 HERMAN-stained slides, 07/17/2017) - Secretory endometrium. 2. Right fallopian tube and ovary, right salpingo-oophorectomy ([id number], 18 HERMAN-stained and 6 IHC-stained slides, [...] at the [facility] on the right ovarian tumor shows weak positive for calretinin and inhibin and negative for CK7 and RODNEY, supporting the above interpretation. SYNOPTIC REPORT OF GOMES PATHOLOGIC FINDINGS 24 SLIDES ([id number]): ? ? ?Procedure: ? ? ? Simple [...] note were sent to: Kerwin Vera MD (CIRCULATION LIBRARIAN) CC: Mei Butt MD (PCP) [facility] US-US PELVIS and TRANSVAG IM PORTon 07-14-2018 US-US PELVIS and TRANSVAG IMPORT Images were obtained outside of [facility] [id number] N [facility] CT ABD/PEL W IVCONon 019 CT ABD/PEL W IVCON * * *Final Report* * * DATE OF EXAM: Jul 09 2018 9:07AM [facility] 0530 - CT ABD/PEL W [...] any questions regarding this interpretation, please call [phone]. If you are unable to reach us at the number above, please feel free to contact [facility] at [phone]. [id number] N [facility] CT CHEST W IVCONon 9 CT CHEST W IVCON * * *Final Report* * * DATE OF EXAM: Jul 09 2018 9:07AM [facility] 0539 - CT CHEST W [...] the report reviewed and electronically signed by: SEABSTIAN THACKER MD on Jul 09 2018 11:36AM EST Thank you for allowing us to participate in the care of your patient. Should there be any questions regarding this interpretation, please call [phone]. If you are unable to reach us at the number above, please feel free to contact [facility] at [phone]. [id number] N [facility] PROGRESSon 07-09-2018 PROGRESS HNO ID: [id number] Author: Sandy José Service: (none) Author Type: [...] José July 09, 2018 9:52 AM [facility] SURGICAL PATHOLOGYon 019 SURGICAL PATHOLOGY Specimen #: [id number] * Submitting Physician: DEREK BENITEZ MD FINAL DIAGNOSIS Consultation case from [place], [place]: 1. Endometrium, curettings ([id number], 2 H&E-stained slides, 07/17/2017) - Secretory endometrium. 2. Right fallopian tube and ovary, right salpingo-oophorectomy ([id number], 18 H&E-stained and 6 IHC-stained slides, [...] at the [facility] on the right ovarian tumor shows weak positive for calretinin and inhibin and negative for CK7 and RODNEY, supporting the above interpretation. SYNOPTIC REPORT OF GOMES PATHOLOGIC FINDINGS 24 SLIDES ([id number]): Procedure: Simple hysterectomy Right salpingo-oophorectomy Left salpingectomy [...] Signature) ____ SPECIMEN SUBMITTED A: 2 SLIDES ([id number]) B: 24 SLIDES ([id number]) CLINICAL DATA None provided. Date of Report: 06/30/2018 Date of Procedure: 06/28/2018 Date of Receipt: 06/29/2018 Submitted by: DEREK BENITEZ MD Location: MAIN Diagnostic interpretation performed at [facility], [address] [place] [address]. [facility] CNOVSPon 06-25-2018 CNOVSP Visit (SP) Office (GYNOSA) KATHRYN PADRON ([id number]) 1975 F Date Time Provider Department 06/25/18 8:40 AM DEREK BENITEZ During your visit today, we recorded the following information about you: Temperature Pulse Respiration Blood pressure 98.1 degrees 86/minute 18/minute 120/65 Weight Last Period 70.6 kg 05/25/18 Derek Benitez MD 06/27/2018 8:57 AM Signed Gynecologic Oncology [facility] Consultation Re: Kathryn Padron [facility]#: [id number] 06/25/[address] Vera for [...] lower extremity edema, or palpitations. No recent [place] (within 6 months), cardiac stent, cardiac surgery, [...] with late recurrence. 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 Benitez. Liliam Jackson, COMPUTER HARDWARE TECHNICIAN.[facility] PROGRESS HNO ID: [id number] Author: Derek Benitez Service: (none) Author Type: Physician Type: Progress Notes Filed: 06/27/2018 8:57 AM Note Text: Gynecologic Oncology [facility] Consultation Re: Kathryn Padron CC#: [id number] 06/25/[address] Vera for [...] lower extremity edema, or palpitations. No recent [place] (within 6 months), cardiac stent, cardiac surgery, [...] with late recurrence. Therefore, I do recommend moth exterminator indefinite follow up - Will obtain slides [...] note were sent to: Kerwin Vera MD (CIRCULATION LIBRARIAN) CC: Mei Butt MD (PCP) [facility] Vital Signs Date Time Vital Sign Value Performing Clinician Guanaco beasley 07-04-2024 09:22-0500 Body mass index (BMI) [Ratio] 31.5 kg/m2 Kathryn BORGES Work Phone: [facility] 07-04-2024 09:22-0500 Body weight 79.38 kg Kathryn BORGES Work Phone: [facility] 07-04-2024 09:22-0500 Diastolic blood pressure 66 mm[Hg] Kathryn BORGES Work Phone: [facility] 07-04-2024 09:22-0500 Systolic blood pressure 104 mm[Hg] Kathryn Escamilla PA Work Phone: [facility] 04-20-2024 08:29-0400 Body height 158.75 cm [facility] 04-20-2024 08:29-0400 Body mass index (BMI) [Ratio] 30.9 kg/m2 [facility] 04-20-2024 08:29-0400 Body weight 78.01 kg [facility] 04-20-2024 08:29-0400 Diastolic blood pressure 72 mm[Hg] [facility] 04-20-2024 08:29-0400 Heart rate 80 /min [facility] 04-20-2024 08:29-0400 Systolic blood pressure 103 mm[Hg] [facility] 03-21-2024 08:57-0400 Body height 158.75 cm [facility] 03-21-2024 08:57-0400 Body mass index (BMI) [Ratio] 31.4 kg/m2 [facility] 03-21-2024 08:57-0400 Body weight 79.09 kg [facility] 03-21-2024 08:57-0400 Diastolic blood pressure 77 mm[Hg] [facility] 03-21-2024 08:57-0400 Heart rate 81 /min [facility] 03-21-2024 08:57-0400 Systolic blood pressure 108 mm[Hg] [facility] 02-18-2024 08:28-0400 Body height 158.75 cm [facility] 02-18-2024 08:28-0400 Body mass index (BMI) [Ratio] 32.6 kg/m2 [facility] 02-18-2024 08:28-0400 Body weight 82.32 kg [facility] 02-18-2024 08:28-0400 Diastolic blood pressure 81 mm[Hg] [facility] 02-18-2024 08:28-0400 Heart rate 69 /min [facility] 02-18-2024 08:28-0400 Systolic blood pressure 129 mm[Hg] [facility] 01-18-2024 14:43-0400 Body height 158.75 cm [facility] 01-18-2024 14:43-0400 Body mass index (BMI) [Ratio] 34.5 kg/m2 [facility] 01-18-2024 14:43-0400 Body weight 87.08 kg [facility] 01-18-2024 14:43-0400 Diastolic blood pressure 79 mm[Hg] [facility] 01-18-2024 14:43-0400 Heart rate 71 /min [facility] 01-18-2024 14:43-0400 Systolic blood pressure 116 mm[Hg] [facility] Encounters Encounter Date Encounter Type Care Provider Facility Start: 07-04-2024 End: 07-04-2024 Yola BORGES Work Phone: [facility] Start: 07-04-2024 End: 07-04-2024 Bamboo flowsheet Kathryn BORGES Work Phone: [facility] Start: 07-04-2024 End: 07-04-2024 Patient encounter procedure Kathryn BROGES Work Phone: [facility] Work Phone: Start: 07-04-2024 End: 07-04-2024 Periodic preventive med est patient 40-64yrs Kathryn BORGES Work Phone: [facility] Comment on above: Well woman exam with routine gynecological exam; Breast cancer screening by mammogram Start: 04-20-2024 End: 04-20-2024 ambulatory [facility] Work Phone: Start: 04-20-2024 End: 04-20-2024 Patient encounter procedure [facility] Physician [facility] Work Phone: Start: 03-21-2024 End: 03-21-2024 ambulatory [facility] Work Phone: Start: 03-21-2024 End: 03-21-2024 Patient encounter procedure [facility] Physician [facility] Work Phone: Start: 02-18-2024 End: 02-18-2024 ambulatory [facility] Work Phone: Start: 02-18-2024 End: 02-18-2024 Patient encounter procedure [facility] Physician [facility] Work Phone: Start: 01-20-2024 Non-patient / Non-visit [facility] Physician [facility] Work Phone: Start: 01-18-2024 Patient encounter status [facility] Start: 01-18-2024 End: 01-18-2024 ambulatory [facility] Work Phone: Start: 01-18-2024 End: 01-18-2024 Encounter for general adult medical examination without abnormal findings [facility] Start: 01-18-2024 End: 01-18-2024 Patient encounter procedure [facility] Work Phone: Start: 07-01-2023 End: 07-01-2023 ambulatory KATHRYN ESCAMILLA Not Available Start: 11-19-[address] DOCTOR YOUNG Facility :[facility] Start: 10-02-2022 End: 10-03-[address] DOCTOR YOUNG Facility:[facility] Start: 06-18-2022 End: 06-18-[address] KERWIN VERA . Facility:[facility] Start: 04-08-2022 End: 04-09-[address] DOCTOR YOUNG Facility:[facility] Start: 07-21-2018 End: 07-21-2018 Patient encounter procedure [facility] [employer] Plan of Treatment Date Care Activity Detail Author Start: 07-11-2025 End: 07-11-2025 Patient encounter procedure 07/11/2025 9:00 AM EST Office Visit [facility] [address] [place] [id number] Kathryn Escamilla, PA [address] [place] [address] [facility] Start: 07-04-2024 End: 09-01-2025 MG Breast - bilateral Screening Bilateral screening mammogram Imaging Routine Breast cancer screening by mammogram Expected: 07/04/2024 (Approximate), Expires: 09/01/2025 [facility] Work Phone: Comment on above: Expected: 07/04/2024 (Approximate), Expires: 09/01/2025 Start: 07-04-2024 End: 07-04-2024 Patient encounter procedure 07/04/2024 9:00 AM EST Office Visit [facility] [address] [place] [address] Kathryn Escamilla, PA [address] [place] [address] Arrived [facility] Comment on above: Arrived Comprehensive metabo lic 2000 panel - Serum or Plasma [facility] THIN PREP TIS PAP AN D HR HPV DNA THIN PREP TIS PAP AND HR HPV DNA Pathology and Cytology Routine Well woman exam with routine gynecological exam Ordered: 07/04/2024 [facility] Comment on above: Ordered: 07/04/2024 [facility] Payers Date Payer Category Payer [employer] [id number] 2022 Unknown [id number] 2019 Unknown [id number] 1975 Unknown [id number] 1975 Unknown [id number] 1975 Unknown [id number] 1975 Unknown [id number] 1975 Unknown [id number] Social History Date Type Detail Facility Start: 06-01-2023 End: 01-18-2024 Tobacco smoking status NHIS Never smoked tobacco (finding) [facility] Start: 1975 Sex Assigned At Female F [facility] Start: 06-01-2023 Tobacco use and exposure Smokeless tobacco non-user [facility] Start: 07-01-2023 End: 07-04-2024 Alcoholic beverage intake Lifetime non-drinker (finding) [facility] Start: 06-01-2023 End: 07-04-2024 History of Social function [facility] Start: 06-01-2023 End: 07-04-2024 Tobacco use panel [facility] Start: 06-30-2023 Gender identity Identifies as female gender (finding) [facility] History of Present illness Narrative 07-04-2024 Kathryn MayraKATERINA - 07/04/2024 9:00 AM EST Note Date & Type Note Facility 07-04-2024 History of Presen t illness Narrative Reason for Appointment: Patient ID: Kathryn Padron is a 49 y.o. female who presents for Well Women Visit Patient presents today for Annual Exam. 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 Night sweats Obesity (BMI 30-39.9) Pre-op exam Well woman exam HISTORY PAST MEDICAL HISTORY SOCIAL HISTORY Past Medical History: Diagnosis Date Acute sinusitis Bee sting allergy Hematuria Hot flashes due to surgical menopause Kidney stone Left ovarian cyst 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 Night sweats Obesity (BMI 30-39.9) Pre-op exam Well woman exam Social History Tobacco Use Smoking status: Never Smokeless tobacco: Never Substance Use Topics Alcohol use: Never Drug use: Never FAMILY HISTORY Family History Problem Relation Name Age of Onset Arthritis Paternal Grandmother Cancer Paternal Grandfather SURGICAL HISTORY Past Surgical History: Procedure Laterality Date APPENDECTOMY DILATION AND CURETTAGE OF UTERUS 06/2017 HYSTEROSCOPY 06/2017 KIDNEY STONE SURGERY 2019 Kidney stones LAPAROSCOPY DIAGNOSTIC / BIOPSY / ASPIRATION / LYSIS OOPHORECTOMY Left OOPHORECTOMY Right 05/2018 OTHER SURGICAL HISTORY 2013 ESSURE TOTAL ABDOMINAL HYSTERECTOMY 05/2018 TUBAL LIGATION 2012 REVIEW OF SYSTEMS Review of Systems: Review of Systems Constitutional: Negative. HENT: Negative. Eyes: Negative. Respiratory: Negative. Cardiovascular: Negative. Gastrointestinal: Negative. Genitourinary: Negative. Musculoskeletal: Negative. Skin: Negative. Neurological: Negative. All other systems reviewed and are negative. Hematological: Negative. Endocrine: Negative. Allergic/Immunologic: Negative. OBJECTIVE Objective: Physical Exam Constitutional: Appearance: Normal appearance. Genitourinary: Right Adnexa: not tender and no mass present. Left Adnexa: not tender and no mass present. Cervix is absent. Uterus is absent. Breasts: Breasts are soft. Right: Normal. Left: Normal. HENT: Head: Normocephalic. Nose: Nose normal. Mouth/Throat: Mouth: Mucous membranes are moist. Cardiovascular: Rate and Rhythm: Normal rate. Pulmonary: Effort: Pulmonary effort is normal. Abdominal: General: Bowel sounds are normal. Palpations: Abdomen is soft. Musculoskeletal: General: Normal range of motion. Cervical back: Normal range of motion. Neurological: General: No focal deficit present. Mental Status: She is alert. Skin: General: Skin is warm and dry. Psychiatric: Mood and Affect: Mood normal. Vitals and nursing note reviewed. Exam conducted with a truck driving instructor present. Vitals: Estimated body mass index is 31.5 kg/m as calculated from the following: Height as of 06/18/22: 5' 2.5 . Weight as of this encounter: 175 lb. BP: 104/66 No LMP recorded. ASSESSMENT & PLAN ICD-10-CM 1. Well woman exam with routine gynecological exam Z01.419 THIN PREP TIS PAP AND HR HPV DNA 2. Breast cancer screening by mammogram Z12.31 Bilateral screening mammogram Bilateral screening mammogram Annual Exam: Patient presents today for an annual exam. Patient states she is doing well and has no complaints. Pap was obtained without difficulty. Orders Placed This Encounter Procedures Bilateral screening mammogram Follow Up: Patient is to return in one year for annual unless needed otherwise. Documented by KATERINA Mcnulty on behalf of: KATERINA Mcnulty documented in this encounter [facility] Evaluation note Note Date & Type Note Facility Evaluation note Diagnosis Onset Date Obesity acute Wellness examination [facility] Work Phone: Evaluation note Note Date & Type Note Facility Evaluation note Diagnosis Onset Date Class 1 obesity with body ma ss index (BMI) of 34.0 to 34.9 in adult acute Obesity acute Wellness examination [facility] Work Phone: Evaluation note Note Date & Type Note Facility Evaluation note Diagnosis Onset Date Class 1 obesity with body ma ss index (BMI) of 34.0 to 34.9 in adult acute Obesity acute Wellness examination acute Class 1 obesity with body ma ss index (BMI) of 32.0 to 32.9 in adult acute [facility] Work Phone: Evaluation note Note Date & Type Note Facility Evaluation note Diagnosis Onset Date [id number] [facility] Work Phone: Evaluation note Note Date & Type Note Facility Evaluation note Diagnosis Well woman exam with routine gynecological exam Routine gynecological examination Breast cancer screening by mammogram documented in this encounter [facility] Summary Purpose Family History Relationship Condition Age at Onset Recorded Date/T tristin paternal grandfather Malignant neoplasm Unknown maternal grandfather Heart disease Unknown Advance Directives Advance Directive Response Recorded Date/ Time Advance Directives No January 10 1:32pm Chief Complaint and Reason for Visit Chief Complaint wellness Reason for Visit Obesity Wellness examination Chief Complaint wellness 1 month f/u Reason for Visit Class 1 obesity with body mass index (BMI) of 34.0 to 34.9 in adult Obesity Wellness examination Chief Complaint wellness 1 month f/u 1 month f/u Reason for Visit Class 1 obesity with body mass index (BMI) of 34.0 to 34.9 in adult Obesity Wellness examination Class 1 obesity with body mass index (BMI) of 32.0 to 32.9 in adult Chief Complaint 1 month f/u 1 month f/u 1 month f/u Reason for Visit [id number] Additional Source Comments INFORMATION SOURCE (unrecogn ized section and content) DATE CREATED AUTHOR 08/05/2018 [facility]3] DATE CREATED AUTHOR AUTHOR'S ORGANIZ ATION 02/27/2019 [facility] DATE CREATED AUTHOR AUTHOR'S ORGANIZ ATION 11/28/2022 [facility] DATE CREATED AUTHOR AUTHOR'S ORGANIZ ATION 07/02/2023 [facility] EPIC Care Teams (unrecognized sec tion and content) Team Status: Active Member Role Status Dates Mei Butt MD Primary Care Provider Active Team Status: Inactive Member Role Status Dates Mei Butt MD Primary Care Provide r, Attending Provider Active Start: January 18, 2024 End: January 18, 2024 Team Status: Active Member Role Status Dates Mei Butt MD Primary Care Provide r, Attending Provider Active Start: January 20, 2024 Team Status: Inactive Member Role Status Dates Mei Butt MD Primary Care Provide r, Attending Provider Active Start: February 18, 2024 End: February 18, 2024 Team Status: Inactive Member Role Status Dates Mei Butt MD Primary Care Provide r, Attending Provider Active Start: March 21, 2024 End: March 21, 2024 Team Status: Inactive Member Role Status Dates Mei Butt MD Primary Care Provide r, Attending Provider Active Start: April 20, 2024 End: April 20, 2024 [employer] Relationship Specialty Start Date End Date Mei Butt MD [address] [place] [address] PCP - General Family Medicine 07/01/23 [employer] Relationship Specialty Start Date End Date Mei Butt MD [address] [place] [address] PCP - General Family Medicine 07/01/23 Goals (unrecognized section and content) Goals may be documented in a n alternate sectionGoals may be documented in an alternate sectionGoals may be documented in an alternate sectionGoals may be documented in an alternate section Reason for Visit (unrecogniz ed section and content) Reason Comments Well Women Visit FOR RECORDS PERTAINING TO PATIENTS WHO ARE [...] BE BASED ON THE PRIMARY CLINICAL RECORDS. [employer] [facility]. provides no warranty or guarantee of the accuracy or completeness of information in this document.
[2024-07-07 00:07] LABS: Age Gdln ACOG Testing Note (.); HPV Aptima Negative (Negative); IGP, Aptima HPV, rfx 16/18,45 Note (.)
== END 2024-07-04 20:27 | disposition home or self-care (01) ==
LOC: LAB 20:26
PROVIDERS: PCP Family Medicine; Visit Provider Physician Assistant
DX: Z01.419 Encounter for gynecological examination (general) (routine) without abnormal findings (principal)
CPT/HCPCS: 88175

== ENCOUNTER 2024-10-20 15:58 | Outpatient (OUT) | payer BC, SELFPAY | END 2024-10-20 15:59 | disposition home or self-care (01) | LOC: LAB 16:00 | PROVIDERS: PCP Family Medicine | DX: C56.9 Malignant neoplasm of unspecified ovary (principal) | CPT/HCPCS: 36415; 83520; 86336 ==

== ENCOUNTER 2025-01-04 07:27 | Outpatient (OUT) | payer BC, SELFPAY ==
--- NOTE | 2025-01-04 07:29 | MM_ITS ---
Patient Name: TASH GARZA MR#: [id number] : 1975 Exam Date: 01/04/2025 Ordering Doctor: DR KERWIN HWANG . RADIOLOGY REPORT PROCEDURE: MM TOMOSYNTHESIS SCREENING BI COMPARISON: MM TOMOSYNTHESIS SCREENING BI, 11/25/2023. MG MAMM SCREEN 3D NIKO CAD, 11/19/2022. MG MAMM SCREEN 3D NIKO CAD, 11/15/2021. MG MAMM SCREEN NIKO W CAD, 11/09/2017. INDICATIONS: Screening Calculator Name NCI Breast Cancer Risk Assessment Tool 5 Year Breast Cancer Risk 0.90% Lifetime Breast Cancer Risk 9.50% Personal Breast Cancer No Personal Ovarian Cancer Yes, 43 Treatments None Family Cancers Grandfather-paternal with colon cancer at age ~80. LOCATION: [facility] BREAST COMPOSITION: There are scattered areas of fibroglandular density. FINDINGS: DIAGNOSTIC CATEGORY 1--NEGATIVE. RIGHT BREAST: No significant suspicious finding. LEFT BREAST: No significant suspicious finding. RECOMMENDATIONS: ROUTINE MAMMOGRAM AND CLINICAL EVALUATION IN 12 MONTHS. PLEASE NOTE: A NORMAL MAMMOGRAM DOES NOT EXCLUDE THE POSSIBILITY OF BREAST CANCER. A CLINICALLY SUSPICIOUS PALPABLE LUMP SHOULD BE BIOPSIED. Dictated by: Brandon Cervantes MD on 01/04/2025 at 11:14 Approved by: Brandon Cervantes MD on 01/04/2025 at 11:15
--- OUTSIDE RECORDS SUMMARY | 2025-01-04 07:31 | XMS_ITS | CCD ---
Author Organization [facility] Care Team Providers Care Milling Machine Set Up Operator Name Role Phone DEREK BENITEZ Attending Unavailable [...] JAIDEN ., DR SURESH Primary Care Unavailable Mei Butt MD Primary Care Provider KATHRYN ESCAMILLA Attending Unavailable Allergies Allergy Classification Reported Allergen(s) Allergy Type Date of Onset Reaction(s) Facility (1 source) Bee; Translations: [BEES] Propensity to adverse reactions (disorder) [address] [facility] Repository (1 source) bee venom Drug allergy (disorder) [facility] Repository (4 sources) Honey bee venom Allergy to substance 9 [facility] Work Phone: Medications Current Medications Medication Drug Class(es) Dates Sig (Normalized) Sig (Original) amoxicillin 875 mg / clavulanate 125 mg oral tablet (1 source) Penicillin-class Antibacterial Start: 07-21-2024 take 1 tablet by mouth twice daily Amoxicillin-Pot Clavulanate 875-125 mg tablet Active 1 TAB PO Twice daily July 21, 2024 12:00am ascorbic acid 60 mg / beta carotene 5000 unt / copper sulfate 40 mg / dl-alpha tocopheryl acetate 30 unt / sodium selenite 0.04 mg / zinc oxide 40 mg oral tablet (4 sources) Vitamin C Multiple Vitamin (Multivitamin Adult) tablet 1 (one) time each day at the same time Active benzonatate 200 mg oral capsule (1 source) Non-narcotic Antitussive Start: 07-21-2024 Benzonatate 200 mg capsule Active 200 MG PO 2-3 TIMES PER DAY as needed for cough July 21, 2024 12:00am estradiol 0.5 mg oral tablet (9 sources) Estrogen Start: 01-18-2024 take 1 tablet by mouth once daily Estradiol 0.5 mg tablet Active 0.5 MG PO Daily January 17, 2024 11:00pm off 5 days; repeat cycle Multivitamin (Daily Multi-Vitamin) tablet (5 sources) Start: 01-18-2024 take 1 tablet by mouth once daily Multivitamin (Daily Multi-Vitamin) tablet Active 1 TAB PO Daily January 17, 2024 11:00pm Start: 01-18-2024 take 1 tablet by donny th once daily Multivitamin (Daily Multi-Vitamin) tablet Active 1 TAB PO Daily January 18, 2024 12:00am Completed/Discontinued Medications Medication Drug Class(es) Dates Sig (Normalized) Sig (Original) phentermine hydrochloride 37.5 mg oral tablet (14 sources) Sympathomimetic Amine Anorectic Start: 01-18-2024 End: 07-21-2024 take 1 tablet by mouth once daily 30 minutes after breakfast Phentermine (Adipex-P) 37.5 mg tablet Discontinued 37.5 MG PO Daily April 20, 2024 7:44am July 21, 2024 8:46am must administer 30 minutes before or 1-2 hours after breakfast Problems Active Problems Problem Classification Problem Date Documented Da te Episodic/Chronic Neoplasms of unspecified nature or uncertain behavior (4 sources) 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; Translations: [NEOPLASM UNCERT BEHAVIOR UNS OVARY] Onset: 10-02-2022 Episodic Other nutritional; endocrine; and metabolic disorders (18 sources) Obesity; Translations: [Obesity, unspecified] 01-18-2024 Chronic Other nutritional; endocrine; and metabolic disorders (6 sources) Obesity, unspecified; Translations: [Obesity, unspecified] 01-18-2024 Chronic Other screening for suspected conditions (not mental disorders or infectious disease) (6 sources) Encounter for screening for malignant neoplasm of cervix; Translations: [Patient encounter status] Onset: 06-18-2022 Episodic Other upper respiratory infections (2 sources) Acute maxillary sinusitis; Translations: [Acute maxillary sinusitis, unspecified] 07-21-2024 Episodic Past or Other Problems Problem Classification Problem Date Documented Date Episodic/Chronic Immunizations and screening for infectious disease (1 source) Encounter for screening for human papillomavirus (HPV); Translations: [ENC SCREENING HUMAN PAPILLOMAVIRUS] Onset: 06-20-2022 Episodic Results Test Name Value Interpretation Reference Range Facility IGP,APTIMA HPV,AGE GDLNon AGE GDLN ACOG TESTING Note . [facility] Comment on above: TESTS RESULT FLAG U NITS REF RANGE LAB Clinician Provided Cytology Information Source.............Vagina No. of containers..01 ThinPrep Vial Age Algo ACOG Sindhu... FLAG LEGEND: L-Low Normal,H-High Normal,LL-Alert Low,HH-Alert High <-Panic Low,>-Panic High,A-Abnormal,AA-Critical Abnormal Performed at: 01 =G [address] [address] Maricruz Geiger MD, HPV APTIMA Negative Negative [facility] Comment on above: This nucleic acid am plification test detects fourteen high- risk HPV types (16,18,31,33,35,39,45,51,52,56,58,59,66,68) without differentiation. Performed at: =G - [facility], [place] [id number] Room Clerk: Maricruz Geiger MD, Phone: [phone] Performed at: - [facility], [place] [id number] Room Clerk: Maricruz Geiger MD, Phone: [phone] IGP, APTIMA HPV, RFX 16/18,45 Note . [facility] Comment on above: TESTS RESULT FLAG UN ITS REF RANGE LAB DIAGNOSIS: 02 NEGATIVE FOR INTRAEPITHELIAL LESION OR MALIGNANCY. Specimen adequacy: 02 Satisfactory for evaluation. No endocervical cells are present. This is consistent with a history of hysterectomy. Performed by: Kate Pina, Drilling Engineering Manager (ASCP) . 02 Note: Note 02 The Pap smear is a screening test designed to aid in the detection of premalignant and malignant conditions of the uterine cervix. It is not a diagnostic procedure and should not be used as the sole means of detecting cervical cancer. Both false-positive and false-negative reports do occur. Test Methodology: Note 02 This liquid based ThinPrep(R) pap test was screened with the use of an image guided system. HPV Genotype Reflex Note 02 Criteria not met, HPV Genotype not performed. FLAG LEGEND: L-Low Normal,H-High Normal,LL-Alert Low,HH-Alert High <-Panic Low,>-Panic High,A-Abnormal,AA-Critical Abnormal Performed at: 02 [facility] [address] [place] [address] Maricruz Geiger MD, SPATULA-ALONE VAGINA [facility] Human papilloma virus 16+18+ 31+33+35+39+45+51+52+56+58+59+66+68 DNA [Presence] in [place] 07-04-2024 HPV 16+18+31+33+35+39+45 +51+52+56+58+59+66+6 8 DNA Probe+sig amp Ql (Cvx) Human papilloma virus 16+18+31+33+35+39+45+ 51+52+56+58+59+66+68 DNA [Presence] in Cer Negative [facility] Comment on above: This nucleic acid am plification test detects fourteen high- risk HPV types (16,18,31,33,35,39,45,51,52,56,58,59,66,68)without differentiation.Performed at: = - [facility] [id number] Director: Maricruz Geiger MD, Phone: [phone] at: [address] [id number] Director: Maricruz Geiger MD, Phone: [phone] No Panel Informationon 07-04 HPV High Risk Other Comment Note . [facility] Comment on above: TESTS RESULT FLAG UN ITS REF RANGE LAB DI AGNOSIS: 02 NEGATIVE FOR INTRAEPITHELIAL LESION OR MALIGNANCY.Specimen adequacy: 02 Satisfactory for evaluation. No endocervical cells are present. This is consistent with a history of hysterectomy.Performed by: Kate Pina Drilling Engineering Manager (ASCP). 02Note: Note 02 The Pap smear is a screening test designed to aid in the detection of premalignant and malignant conditions of the uterine cervix. It is not a diagnostic procedure and should not be used as the sole means of detecting cervical cancer. Both false-positive and false-negative reports do occur.Test Methodology: Note 02 This liquid based ThinPrep(R) pap test was screened with the use of an image guided system.HPV Genotype Reflex Note 02 Criteria not met, HPV Genotype not performed. ----- FLAG LEGEND: L-Low Normal,H-High Normal,LL-Alert Low,HH-Alert High <-Panic Low,>-Panic High,A-Abnormal,AA-Critical Abnormal ---Performed at:[address] [address] Maricruz Geiger MD, Reference Lab Test Patient Age Note . [facility] Comment on above: TESTS RESULT FLAG UN ITS REF RANGE LAB Clinician Provided Cytology Information Source.............Vagina No. of containers..01 ThinPrep VialAge Andreas KRISHNAMURTHY Sindhu... 30-65 FLAG LEGEND: L-Low Normal,H-High Normal,LL-Alert Low,HH-Alert High <-Panic Low,>-Panic High,A-Abnormal,AA-Critical Abnormal ---Performed at:01 =[facility] [address] [place] [address] Maricruz Geiger MD, Basophils Auto (Bld) [#/Vol] on 01-20-2024 Basophils (Bld) [#/Vol] 0.1 10 3/uL 0.0-0.1 [facility] Basophils/100 WBC Auto (Bld) on 01-20-2024 Basophils/100 WBC (Bld) 1.2 % 0.2-2.0 [facility] Cholesterol in LDL Calc [Mas s/Vol]on 01-20-2024 Cholesterol in LDL [Mass/Vol] 123.0 mg/dL [facility] Comment on above: <100 mg/dl [id number] 0-129 mg/dl NEAR OR ABOVE [id number] mg/dl BORDERLINE CPON132-086 mg/dl HIGH>190 mg/dl VERY HIGH Cholesterol in VLDL Calc [Ma ss/Vol]on 01-20-2024 Cholesterol in VLDL [Mass/Vol] 18.4 mg/dL [facility] Eosinophils/100 WBC Auto (Bl d)on 01-20-2024 Eosinophils/100 WBC (Bld) 5.3 % 0.9-7.0 [facility] Erythrocyte distribution wid th Auto (RBC) [Ratio]on 01-20-2024 Erythrocyte distribution width (RBC) [Ratio] 13.1 % 11.0-15.0 [facility] Estimated glomerular filtrat ion rate (GFR) non- Americanon 01-20-2024 GFR/1.73 sq M.predicted among non-blacks MDRD (S/P/Bld) [Vol rate/Area] mL/min/{1.73_m2} >=60 [facility] Globulin Calc (S) [Mass/Vol] on 01-20-2024 Globulin (S) [Mass/Vol] 3.2 g/dL [facility] Glucose mean value [Mass/vol ume] in Blood Estimated from glycated hemoglobinon 01-20-2024 Average glucose Estimated from glycated hemoglobin (Bld) [Mass/Vol] 94 mg/dL [facility] Hematocrit Auto (Bld) [Volum e fraction]on 01-20-2024 Hematocrit (Bld) [Volume fraction] 39.8 % 36.0-48.0 [facility] Hemoglobin [Mass/volume] in Bloodon 01-20-2024 Hemoglobin (Bld) [Mass/Vol] 13.2 g/dL 12.0-16.0 [facility] Laboratory - Chemistry and C hemistry - challengeon 01-20-2024 Albumin [Mass/Vol] 4.0 g/dL 3.4-5.0 [facility] ALP [Catalytic activity/Vol] 86 U/L 46-116 [facility] ALT [Catalytic activity/Vol] 21 U/L 14-59 [facility] AST [Catalytic activity/Vol] 17 U/L 15-37 [facility] Bilirubin [Mass/Vol] 1.0 mg/dL 0.2-1.0 [facility] Calcium [Mass/Vol] 9.3 mg/dL 8.5-10.1 [facility] Chloride [Moles/Vol] 106 mmol/L 98-107 [facility] Cholesterol [Mass/Vol] 211 mg/dL High <=200 [facility] Cholesterol in HDL [Mass/Vol] 70 mg/dL High 40-60 [facility] Comment on above: > or =60 mg/dl - LOW CARDIOVASCULAR RISK<40 mg/dl - HIGH CARDIOVASCULAR RISK CO2 [Moles/Vol] 28.5 mmol/L 21.0-32.0 [facility] Creatinine [Mass/Vol] 0.92 mg/dL 0.55-1.02 [facility] GFR/1.73 sq M.predicted MDRD (S/P/Bld) [Vol rate/Area] mL/min/{1.73_m2} >=60 [facility] Glucose [Mass/Vol] 94 mg/dL 74-106 [facility] Potassium [Moles/Vol] 3.9 mmol/L 3.5-5.1 [facility] Protein [Mass/Vol] 7.2 g/dL 6.4-8.2 [facility] Sodium [Moles/Vol] 143 mmol/L 136-145 [facility] Triglyceride [Mass/Vol] 92 mg/dL <=150 [facility] TSH Qn 2.126 m[IU]/L 0.358-3.740 [facility] Urea nitrogen [Mass/Vol] 19.0 mg/dL High 7.0-18.0 [facility] Urea nitrogen/Creatinine [Mass ratio] 20.7 mg/mg [facility] Laboratory - Hematology and Cell countson 01-20-2024 HbA1c (Bld) [Mass fraction] 4.9 % 4.5-6.2 [facility] Comment on above: ADA RECOMMENDED LIMI T 4.0 - 6.0ADA THERAPEUTIC TARGET < 7.0ACTION SUGGESTED> 7.0 Immature granulocytes/100 WBC (Bld) 0.2 % 0.0-0.5 [facility] Leukocytes [#/volume] correc dillon for nucleated erythrocytes in Blood by Automated counon 01-20-2024 WBC corrected for nucl RBC Auto (Bld) [#/Vol] 6.1 10 3/uL 4.0-11.0 [facility] Lymphocytes Auto (Bld) [#/Vo l]on 01-20-2024 Lymphocytes (Bld) [#/Vol] 2.2 10 3/uL 1.2-3.8 [facility] Lymphocytes/100 WBC Auto (Bl d)on 01-20-2024 Lymphocytes/100 WBC (Bld) 36.9 % 20.5-60.0 [facility] MCH Auto (RBC) [Entitic mass ]on 01-20-2024 MCH (RBC) [Entitic mass] 29.2 pg 26.7-34.0 [facility] MCHC Auto (RBC) [Mass/Vol]on 01-20-2024 MCHC (RBC) [Mass/Vol] 33.2 g/dL 29.9-35.2 [facility] MCV Auto (RBC) [Entitic vol] on 01-20-2024 MCV (RBC) [Entitic vol] 88.1 fL 81.0-99.0 [facility] Monocytes Auto (Bld) [#/Vol] on 01-20-2024 Monocytes (Bld) [#/Vol] 0.3 10 3/uL 0.3-0.8 [facility] Monocytes/100 WBC Auto (Bld) on 01-20-2024 Monocytes/100 WBC (Bld) 5.5 % 1.7-12.0 [facility] Neutrophils Auto (Bld) [#/Vo l]on 01-20-2024 Neutrophils (Bld) [#/Vol] 3.1 10 3/uL 1.4-6.5 [facility] Neutrophils/100 WBC Auto (Bl d)on 01-20-2024 Neutrophils/100 WBC (Bld) 50.9 % 43.0-75.0 [facility] No Panel Informationon 01-19 Eosinophils # (Auto) 0.3 10 3/uL 0.0-0.7 [facility] Immature Granulocyte # (Auto) 0.01 10 3/uL 0.00-0.03 [facility] Platelet mean volume Auto (B ld) [Entitic vol]on 01-20-2024 Platelet mean volume (Bld) [Entitic vol] 9.9 fL 9.5-13.5 [facility] Platelets Auto (Bld) [#/Vol] on 01-20-2024 Platelets (Bld) [#/Vol] 301 10 3/uL 150-450 [facility] RBC Auto (Bld) [#/Vol]on RBC (Bld) [#/Vol] 4.52 10 6/uL 4.20-5.40 [facility] Serum or plasma albumin/glob ulin mass ratioon 01-20-2024 Albumin/Globulin [Mass ratio] 1.3 {ratio} [facility] Serum or plasma anion gap de terminationon 01-20-2024 Anion gap [Moles/Vol] 12.4 mmol/L [facility] Serum or plasma total choles terol/high density lipoprotein (HDL) cholesterol mass everardo 01-20-2024 Cholesterol.total/Ch olesterol in HDL [Mass ratio] 3.0 {ratio} [facility] Comment on above: 3.3 - 4.4 LOW RISK4. 4 - 7.1 AVERAGE RISK7.1 - 11.0 MODERATE RISK>11.0 HIGH RISK MG MAMM SCREEN 3D NIKO CADon 11-19-2022 MG MAMM SCREEN 3D NIKO CAD Patient: KATHRYN PADRON Exam Date: 11/19/2022 : 1975 Gender:F Ordering : DR KERWIN VERA . Admission #: [id number] Family : DR PAREDES [facility] Order #: [id number] CLICK HERE TO VIEW EXAM RADIOLOGY REPORT [...] colon cancer at age 82. LOCATION: [facility] BREAST COMPOSITION: Heterogeneously dense,which may obscure [...] M.D. on 11/19/2022 at 14:[address] [facility] INHIBIN Bon 10-06-2022 Inhibin B <7.[address] [facility] Comment on above: Result Comment: Rishabh y Follicular <261.0 Late Follicular <286.0 Periovulatory <189.0 MidLuteal <164.0 End Luteal <107.0 Post Menopausal < 17.0 Inhibin B performed by [facility] Enzyme Linked Immunoassay methodology. Values obtained with different assay methods or kits cannot be used interchangeably. Performed By: #### I SDBNB #### [facility] [address] [place] [address] Dr. Socrates Aquino INHIBIN A, ULTRASENSITVEon 0 10-03-2022 Inhibin A, Ultrasensitive 0.4 pg/mL Normal [facility] Comment on above: Result Comment: Mens trual Phase Early Follicular <34.0 Late Follicular <99.0 Periovulatory 8.0-233.0 MidLuteal <145.0 End Luteal <145.0 Postmenopausal <4.0 Inhibin A performed by [employer] Access Automated Immunoassay methodology. Values obtained with different assay methods or kits cannot be used interchangeably. Performed By: #### I NHIBIN #### [facility] [address] [place] [address] Dr. Socrates Aquino PAP ACOG PANEL 2: 30 to 65on 06-26-2022 . . Normal [facility] Comment on above: Result Comment: Perf ormed at: BA Performed By: #### [id number] #### [facility] [address] [place] [address] Dr. Socrates Aquino Age Gdln ACOG Testing - Normal [facility] Comment on above: Performed By: #### [id number] #### [facility] [address] [place] [address] Dr. Socrates Aquino DIAGNOSIS: Comment Normal [facility] Comment on above: Result Comment: NEGA TIVE FOR INTRAEPITHELIAL LESION OR MALIGNANCY. Performed at: BA Performed By: #### [id number] #### [facility] [address] [place] [address] Dr. Socrates Aquino HPV Aptima Negative Normal Negative [facility] Comment on above: Result Comment: This nucleic acid amplification test detects fourteen high-risk HPV types (16,18,31,33,35,39,45,51,52,56,58,59,66,68) without differentiation. Performed at: =G Performed By: #### [id number] #### [facility] [address] [place] [address] Dr. Socrates Aquino HPV Genotype Reflex Comment Normal [facility] Comment on above: Result Comment: Crit eria not met, HPV Genotype not performed. Performed at: BA Performed By: #### [id number] #### [facility] [address] [place] [address] Dr. Socrates Aquino Methodology: Comment Normal [facility] Comment on above: Result Comment: This liquid based ThinPrep(R) pap test was screened with the use of an image guided system. Performed at: WB Performed By: #### [id number] #### [facility] [address] [place] [address] Dr. Socrates Aquino Note: Comment Normal [facility] Comment on above: Result Comment: The Pap smear is a screening test designed to aid in the detection of premalignant and malignant conditions of the uterine cervix. It is not a diagnostic procedure and should not be used as the sole means of detecting cervical cancer. Both false-positive and false-negative reports do occur. . Performed at: WB Performed By: #### [id number] #### [facility] [address] [place] [address] Dr. Socrates Aquino Performed by: Comment Normal [facility] Comment on above: Result Comment: Brittany Campbell, Drilling Engineering Manager (ASCP) Performed at: BA Performed By: #### [id number] #### [facility] [address] [place] [address] Dr. Socrates Aquino Specimen adequacy: Comment Normal [facility] Comment on above: Result Comment: Sati sfactory for evaluation. Endocervical and/or squamous metaplastic cells (endocervical component) are present. Performed at: BA Performed By: #### [id number] #### [facility] [address] [place] [address] Dr. Socrates Aquino INHIBIN Bon 04-11-2022 Inhibin B <7.0 [facility] Comment on above: Result Comment: Rishabh y Follicular <261.0 Late Follicular <286.0 Periovulatory <189.0 MidLuteal <164.0 End Luteal <107.0 Post Menopausal < 17.0 Inhibin B performed by [facility]TM) Enzyme Linked Immunoassay methodology. Values obtained with different assay methods or kits cannot be used interchangeably. Performed By: #### I NHBNB #### [facility] [address] [place], [place] [address] Dr. Socrates Aquino INHIBIN A, ULTRASENSITVEon 1 Inhibin A, Ultrasensitive 0.8 pg/mL Normal [facility] Comment on above: Result Comment: Mens trual Phase Early Follicular <34.0 Late Follicular <99.0 Periovulatory 8.0-233.0 MidLuteal <145.0 End Luteal <145.0 Postmenopausal <4.0 Inhibin A performed by [employer] Access Automated Immunoassay methodology. Values obtained with different assay methods or kits cannot be used interchangeably. Performed By: #### I NHIBIN #### [facility] [address] [address] [address] Socrates Aquino CNOVSPon 02-25-2019 CNOVSP Visit (SP) Office (GYNOSA) KATHRYN PADRON ([id number]) 1975 F Date Time Provider Department 02/25/19 8:00 AM DEREK BENITEZ During your visit today, we recorded the following information about you: Temperature Pulse Respiration Blood pressure 98 degrees 68/minute 16/minute 107/73 Weight 71.8 kg Derek Benitez MD 02/27/2019 6:59 AM Signed Gynecologic Oncology [facility] Consultation Re: Kathryn Padron [facility]#: [id number] 02/26/2019 Dear Kerwin Vera: Thank you for [...] pathology slides FINAL DIAGNOSIS Consultation case from [place], [place]: 1. Endometrium, curettings ([id number], 2 HERMAN-stained slides, 07/17/2017) - Secretory endometrium. 2. Right fallopian tube and ovary, right salpingo-oophorectomy ([id number], 18 HERMAN-stained and 6 IHC-stained slides, [...] 06/30/2018 COMMENT Immunohistochemical staining performed at the [facility] on the right ovarian tumor shows weak positive for calretinin and inhibin and negative for CK7 and RODNEY, supporting the above interpretation. SYNOPTIC REPORT OF GOMES PATHOLOGIC FINDINGS 24 SLIDES ([id number]): ? ? ?Procedure: ? ? ? Simple [...] Olivas Vito reports that she feels well. Had 2 [...] note were sent to: Kerwin Vera MD (BATON TEACHER) CC: Mei Butt MD (PCP) Referring Provider: DEREK BENITEZ [[id number]] Allergies As of Date: 02/25/2019 Noted Allergy [...] by DEREK BENITEZ MD on 02/27/19 Normal [facility] PROGRESSon 02-25-2019 PROGRESS HNO ID: [id number] Author: Derek Mahdi Service: ? Author Type: Physician Type: Progress Notes Filed: 02/27/2019 6:59 AM Note Text: Gynecologic Oncology [facility] Consultation Re: Kathryn Padron [facility]#: [id number] 02/26/2019 Dear Kerwin Vera: Thank you for [...] pathology slides FINAL DIAGNOSIS Consultation case from [facility] [place], [place]: 1. Endometrium, curettings ([id number], 2 HERMAN-stained slides, 07/17/2017) - Secretory endometrium. 2. Right fallopian tube and ovary, right salpingo-oophorectomy ([id number], 18 HERMAN-stained and 6 IHC-stained slides, [...] 06/30/2018 COMMENT Immunohistochemical staining performed at the [facility] on the right ovarian tumor shows weak positive for calretinin and inhibin and negative for CK7 and RODNEY, supporting the above interpretation. SYNOPTIC REPORT OF GOMES PATHOLOGIC FINDINGS 24 SLIDES ([id number]): ? ? ?Procedure: ? ? ? Simple [...] note were sent to: Kerwin Vera MD (BATON TEACHER) CC: Mei Butt MD (PCP) Normal [facility] US-US PELVIS and TRANSVAG IM PORTon 08-26-2018 US-US PELVIS and TRANSVAG IMPORT Images were obtained outside of [facility] [id number] Normal [facility] CNOVon 07-21-2018 CNOV Office Visit (GYNML) KATHRYN PADRON ([id number]) 1975 F Date Time Provider Department 07/21/18 10:15 AM DEREK BENITEZ GYNML During your visit today, we recorded the following information about you: Temperature Pulse Blood pressure Weight 97.8 degrees 75/minute 122/80 71.8 kg Derek Benitez MD 07/21/2018 11:03 AM Signed Gynecologic Oncology [facility] Consultation Re: Kathryn Padron [facility]#: [id number] 07/21/2018 Dear Kerwin Vera: Thank you for [...] pathology slides FINAL DIAGNOSIS Consultation case from [place], [place]: 1. Endometrium, curettings ([id number], 2 HERMAN-stained slides, 07/17/2017) - Secretory endometrium. 2. Right fallopian tube and ovary, right salpingo-oophorectomy ([id number], 18 HERMAN-stained and 6 IHC-stained slides, [...] 06/30/2018 COMMENT Immunohistochemical staining performed at the [facility] on the right ovarian tumor shows weak positive for calretinin and inhibin and negative for CK7 and RODNEY, supporting the above interpretation. SYNOPTIC REPORT OF GOMES PATHOLOGIC FINDINGS 24 SLIDES ([id number]): ? ? ?Procedure: ? ? ? Simple [...] note were sent to: Kerwin Vera MD (BATON TEACHER) CC: Mei Butt MD (PCP) Referring Provider: DEREK BENITEZ [[id number]] Allergies As of Date: 07/21/2018 Noted Allergy [...] Status:Closed by DEREK BENITEZ MD on 07/21/18 [facility] PROGRESSon 07-15-2018 Protein mass conc HNO ID: [id number] Author: Derek Benitez Service: (none) Author Type: Physician Type: Progress Notes Filed: 07/21/2018 11:03 AM Note Text: Gynecologic Oncology [facility] Consultation Re: Kathryn Padron [facility]#: [id number] 07/21/2018 Dear Kerwin Vera: Thank you for [...] pathology slides FINAL DIAGNOSIS Consultation case from [facility] [place], [place]: 1. Endometrium, curettings ([id number], 2 HERMAN-stained slides, 07/17/2017) - Secretory endometrium. 2. Right fallopian tube and ovary, right salpingo-oophorectomy ([id number], 18 HERMAN-stained and 6 IHC-stained slides, [...] 06/30/2018 COMMENT Immunohistochemical staining performed at the [facility] on the right ovarian tumor shows weak positive for calretinin and inhibin and negative for CK7 and RODNEY, supporting the above interpretation. SYNOPTIC REPORT OF GOMES PATHOLOGIC FINDINGS 24 SLIDES ([id number]): ? ? ?Procedure: ? ? ? Simple [...] note were sent to: Kerwin Vera MD (BATON TEACHER) CC: Mei Butt MD (PCP) [facility] US-US PELVIS and TRANSVAG IM PORTon 07-14-2018 US-US PELVIS and TRANSVAG IMPORT Images were obtained outside of [facility] [id number] Normal [facility] CT ABD/PEL W IVCONon 019 CT ABD/PEL W IVCON * * *Final Report* * * DATE OF EXAM: Jul 09 2018 9:07AM [facility] 0530 - CT ABD/PEL W IVCON / [...] any questions regarding this interpretation, please call [phone]. If you are unable to reach us at the number above, please feel free to contact [facility] at [phone]. [id number] N Normal [facility] CT CHEST W IVCONon 9 CT CHEST W IVCON * * *Final Report* * * DATE OF EXAM: Jul 09 2018 9:07AM [facility] 0539 - CT CHEST W IVCON / [...] any questions regarding this interpretation, please call [phone]. If you are unable to reach us at the number above, please feel free to contact [facility] at [phone]. [id number] N Normal [facility] PROGRESSon 07-09-2018 PROGRESS HNO ID: [id number] Author: Sandy José Service: (none) Author Type: [...] José July 09, 2018 9:52 AM Normal [facility] SURGICAL PATHOLOGYon 019 SURGICAL PATHOLOGY Specimen #: [id number] * Submitting Physician: DEREK BENITEZ MD FINAL DIAGNOSIS Consultation case from [facility], [place], [place]: 1. Endometrium, curettings ([id number], 2 H&E-stained slides, 07/17/2017) - Secretory endometrium. 2. 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 - Follicle cysts. 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 Uterus, cervix and left fallopian tube, hysterectomy and left salpingectomy (B): Cervix - Chronic cervicitis. Endometrium - Proliferative endometrium. Myometrium - Benign leiomyomas. Left fallopian tube - No significant pathologic abnormality. BY/plj 06/30/2018 COMMENT Immunohistochemical staining performed at the [facility] on the right ovarian tumor shows weak positive for calretinin and inhibin and negative for CK7 and RODNEY, supporting the above interpretation. SYNOPTIC REPORT OF GOMES PATHOLOGIC FINDINGS 24 SLIDES ([id number]): Procedure: Simple hysterectomy Right salpingo-oophorectomy Left salpingectomy [...] Signature) ____ SPECIMEN SUBMITTED A: 2 SLIDES ([id number]) B: 24 SLIDES ([id number]) CLINICAL DATA None provided. Date of Report: 06/30/2018 Date of Procedure: 06/28/2018 Date of Receipt: 06/29/2018 Submitted by: DEREK BENITEZ MD Location: MAIN Diagnostic interpretation performed at [facility], [address] [place], [place] [id number]. Normal [facility] CNOVSPon 06-25-2018 CNOVSP Visit (SP) Office (GYNOSA) KATHRYN PADRON ([id number]) 1975 F Date Time Provider Department 06/25/18 8:40 AM DEREK BENITEZ During your visit today, we recorded the following information about you: Temperature Pulse Respiration Blood pressure 98.1 degrees 86/minute 18/minute 120/65 Weight Last Period 70.6 kg 05/25/18 Derek Benitez MD 06/27/2018 8:57 AM Signed Gynecologic Oncology [facility] Consultation Re: Kathryn Padron CCF#: [id number] 06/25/[address] Vera for [...] lower extremity edema, or palpitations. No recent AR (within 6 months), cardiac stent, cardiac surgery, [...] with late recurrence. 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 Benitez. Liliam Jackson, GAUGE INSPECTOR.[facility] PROGRESS HNO ID: [id number] Author: Derek Benitez Service: (none) Author Type: Physician Type: Progress Notes Filed: 06/27/2018 8:57 AM Note Text: Gynecologic Oncology [facility] Consultation Re: Kathryn Padron CCF#: [id number] 06/25/[address] Vera for [...] lower extremity edema, or palpitations. No recent AR (within 6 months), cardiac stent, cardiac surgery, [...] with late recurrence. Therefore, I do recommend ad terminal makeup operator indefinite follow up - Will obtain slides [...] note were sent to: Kerwin Vera MD (BATON TEACHER) CC: Mei Butt MD (PCP) Normal [facility] Vital Signs Date Time Vital Sign Value Performing Clinician Facility 07-21-2024 08:44-0500 Body height 158.75 cm [facility] 07-21-2024 08:44-0500 Body mass index (BMI) [Ratio] 31.5 kg/m2 [facility] 07-21-2024 08:44-0500 Body temperature 98.5 [degF] [facility] 07-21-2024 08:44-0500 Body weight 79.37 kg [facility] 07-21-2024 08:44-0500 Diastolic blood pressure 80 mm[Hg] [facility] 07-21-2024 08:44-0500 Heart rate 82 /min [facility] 07-21-2024 08:44-0500 Systolic blood pressure 121 mm[Hg] [facility] 07-04-2024 09:22-0500 Body mass index (BMI) [Ratio] 31.5 kg/m2 Kathryn BORGES Work Phone: [facility] 07-04-2024 09:22-0500 Body weight 79.38 kg Kathryn BORGES Work Phone: [facility] 07-04-2024 09:22-0500 Diastolic blood pressure 66 mm[Hg] Kathryn BORGES Work Phone: [facility] 07-04-2024 09:22-0500 Systolic blood pressure 104 mm[Hg] Kathryn BORGES Work Phone: [facility] 04-20-2024 08:29-0400 Body height 158.75 cm [facility] 04-20-2024 08:29-0400 Body mass index (BMI) [Ratio] 30.9 kg/m2 [facility] 04-20-2024 08:29-0400 Body weight 78.01 kg [facility] 04-20-2024 08:29-0400 Diastolic blood pressure 72 mm[Hg] [facility] 04-20-2024 08:29-0400 Heart rate 80 /min [facility] 04-20-2024 08:29-0400 Systolic blood pressure 103 mm[Hg] [facility] 03-21-2024 08:57-0400 Body height 158.75 cm [facility] 03-21-2024 08:57-0400 Body mass index (BMI) [Ratio] 31.4 kg/m2 [facility] 03-21-2024 08:57-0400 Body weight 79.09 kg [facility] 03-21-2024 08:57-0400 Diastolic blood pressure 77 mm[Hg] [facility] 03-21-2024 08:57-0400 Heart rate 81 /min [facility] 03-21-2024 08:57-0400 Systolic blood pressure 108 mm[Hg] [facility] 02-18-2024 08:28-0400 Body height 158.75 cm [facility] 02-18-2024 08:28-0400 Body mass index (BMI) [Ratio] 32.6 kg/m2 [facility] 02-18-2024 08:28-0400 Body weight 82.32 kg [facility] 02-18-2024 08:28-0400 Diastolic blood pressure 81 mm[Hg] [facility] 02-18-2024 08:28-0400 Heart rate 69 /min [facility] 02-18-2024 08:28-0400 Systolic blood pressure 129 mm[Hg] [facility] 01-18-2024 14:43-0400 Body height 158.75 cm [facility] 01-18-2024 14:43-0400 Body mass index (BMI) [Ratio] 34.5 kg/m2 [facility] 01-18-2024 14:43-0400 Body weight 87.08 kg [facility] 01-18-2024 14:43-0400 Diastolic blood pressure 79 mm[Hg] [facility] 01-18-2024 14:43-0400 Heart rate 71 /min [facility] 01-18-2024 14:43-0400 Systolic blood pressure 116 mm[Hg] [facility] Encounters Encounter Date Encounter Type Care Provider Facility Start: 07-21-2024 End: 07-21-2024 ambulatory [facility] Work Phone: Start: 07-21-2024 End: 07-21-2024 Patient encounter procedure [facility] Work Phone: Start: 07-04-2024 End: 07-04-2024 Bamboo flowsheet Kathryn BORGES Work Phone: [facility] Start: 07-04-2024 End: 07-07-2024 Bamboo flowsheet Kathryn BORGES Work Phone: [facility] Start: 07-04-2024 End: 07-07-2024 Clinisync Result Encounter Kathryn BORGES Work Phone: [facility] Unsolicited Start: 07-04-2024 Non-patient / Non-visit [facility] Physician [facility] Work Phone: Start: 07-04-2024 End: 07-04-2024 Patient encounter procedure Kathryn BORGES Work Phone: [facility] Work Phone: Start: 07-04-2024 End: 07-04-2024 Periodic preventive med est patient 40-64yrs Kathryn BORGES Work Phone: [facility] Comment on above: Well woman exam with routine gynecological exam; Breast cancer screening by mammogram Start: 07-04-2024 End: 07-04-2024 ambulatory KATHRYN ESCAMILLA Not Available Start: 04-20-2024 End: 04-20-2024 ambulatory [facility] Work Phone: Start: 04-20-2024 End: 04-20-2024 Patient encounter procedure [facility] Physician [facility] Work Phone: Start: 03-21-2024 End: 03-21-2024 ambulatory [facility] Work Phone: Start: 03-21-2024 End: 03-21-2024 Patient encounter procedure [facility] Physician [facility] Work Phone: Start: 02-18-2024 End: 02-18-2024 ambulatory [facility] Work Phone: Start: 02-18-2024 End: 02-18-2024 Patient encounter procedure [facility] Physician [facility] Work Phone: Start: 01-20-2024 Non-patient / Non-visit [facility] Physician [facility] Work Phone: Start: 01-18-2024 Patient encounter status [facility] Start: 01-18-2024 End: 01-18-2024 ambulatory [facility] Work Phone: Start: 01-18-2024 End: 01-18-2024 Encounter for general adult medical examination without abnormal findings [facility] Start: 01-18-2024 End: 01-18-2024 Patient encounter procedure [facility] Work Phone: Start: 11-19-[address] DOCTOR YOUNG Facility :[facility] Start: 10-02-2022 End: 10-03-[address] DOCTOR YOUNG Facility:[facility] Start: 06-18-2022 End: 06-18-[address] KERWIN VERA . Facility:[facility] Start: 04-08-2022 End: 04-09-[address] DOCTOR YOUNG Facility:[facility] Start: 07-21-2018 End: 07-21-2018 Patient encounter procedure [facility] Procedures Date Procedure Procedure Detail Performing Clinician Start: 07-04-2024 IGP,APTIMA HPV,AGE GDLN Kathryn BORGES Work Phone: Plan of Treatment Date Care Activity Detail Author Start: 07-11-2025 End: 07-11-2025 Patient encounter procedure 07/11/2025 9:00 AM EST Office Visit [facility] [address] [facility] [place] [address] Kathryn Escamilla PA [address] [place] [address] [place] [address] [facility] Start: 07-04-2024 End: 09-01-2025 MG Breast - bilateral Screening Bilateral screening mammogram Imaging Routine Breast cancer screening by mammogram Expected: 07/04/2024 (Approximate), Expires: 09/01/2025 [facility] Work Phone: Comment on above: Expected: 07/04/2024 (Approximate), Expires: 09/01/2025 Start: 07-04-2024 End: 07-04-2024 Patient encounter procedure 07/04/2024 9:00 AM EST Office Visit [facility] [address] [facility] [id number] Kathryn Escamilla PA [address] [place] [address] Arrived [facility] Comment on above: Arrived Comprehensive metabo lic 2000 panel - Serum or Plasma [facility] THIN PREP TIS PAP AN D HR HPV DNA THIN PREP TIS PAP AND HR HPV DNA Pathology and Cytology Routine Well woman exam with routine gynecological exam Ordered: 07/04/2024 [facility] Comment on above: Ordered: 07/04/2024 [facility] Payers Date Payer Category Payer [facility] BCBS Memb er Subscriber Plan / Payer (Effective 2022-Present) Name: Kathryn Padron Member ID: [id number] Relation to Subscriber: Self Name: Kathryn Padron Subscriber ID: [id number] Payer ID: Not on file Type: Not on file Address: [place] [id number] 2022 Unknown [id number] 2019 Unknown [id number] 1975 Unknown [id number] 1975 Unknown [id number] 1975 Unknown [id number] 1975 Unknown [id number] 1975 Unknown [id number] Social History Date Type Detail Facility Start: 01-18-2024 End: 01-18-2024 Tobacco smoking status NHIS Never smoked tobacco (finding) [facility] Start: 1975 Sex Assigned At Female F [facility] Start: 06-01-2023 Tobacco use and exposure Smokeless tobacco non-user [facility] Start: 07-01-2023 End: 07-04-2024 Alcoholic beverage intake Lifetime non-drinker (finding) [facility] Start: 06-01-2023 End: 07-04-2024 History of Social function [facility] Start: 06-01-2023 End: 07-04-2024 Tobacco use panel [facility] Start: 06-30-2023 Gender identity Identifies as female gender (finding) [facility] Start: 07-21-2024 Sex Female (finding) [facility] History of Present illness Narrative 07-04-2024 KATERINA Mcnulty - 07/04/2024 9:00 AM EST Note Date [...] Left OOPHORECTOMY Right 05/2018 OTHER SURGICAL HISTORY 2012 ESSURE TOTAL ABDOMINAL HYSTERECTOMY 05/2018 TUBAL LIGATION [...] nursing note reviewed. Exam conducted with a traffic sign erection supervisor present. Vitals: Estimated body mass index is [...] Diagnosis Onset Date Obesity acute Wellness examination [facility] Work Phone: Evaluation note Note Date & Type Note Facility Evaluation note Diagnosis Onset Date Class 1 obesity with body ma ss index (BMI) of 34.0 to 34.9 in adult acute Obesity acute Wellness examination acute [facility] Work Phone: Evaluation note Note Date & Type Note Facility Evaluation note Diagnosis Onset Date Class 1 obesity with body ma ss index (BMI) of 34.0 to 34.9 in adult acute Obesity acute Wellness examination acute Class 1 obesity with body ma ss index (BMI) of 32.0 to 32.9 in adult acute [facility] Work Phone: Evaluation note Note Date & Type Note Facility Evaluation note Diagnosis Onset Date [id number] [facility] Work Phone: Evaluation note Note Date & Type Note Facility Evaluation note Diagnosis Well woman exam with routine gynecological exam Routine gynecological examination Breast cancer screening by mammogram documented in this encounter [facility] Evaluation note Note Date & Type Note Facility Evaluation note Diagnosis Onset Date Resolution Sinusitis, acute maxillary acute July 21 8:34am [facility] Work Phone: Summary Purpose Family History Relationship Condition Age at Onset Recorded Date/T tristin paternal grandfather Malignant neoplasm Unknown maternal grandfather Heart disease Unknown Advance Directives Advance Directive Response Recorded Date/ Time Advance Directives No January 10 1:32pm Advance Directive Response Recorded Date/ Time Advance Directives No January 10 12:32pm Chief Complaint and Reason for Visit Chief [...] f/u 1 month f/u Reason for Visit [id number] Chief Complaint Admit Date URI July 21, 2024 8 :34am Reason for Visit Admit Date Sinusitis, acute maxillary July 21, 2024 8:34am Additional Source Comments INFORMATION SOURCE (unrecogn ized section and content) DATE CREATED AUTHOR 08/05/2018 [facility] DATE CREATED AUTHOR AUTHOR'S ORGANIZ ATION 02/27/2019 [facility] DATE CREATED AUTHOR AUTHOR'S ORGANIZ ATION 11/28/2022 [facility] DATE CREATED AUTHOR AUTHOR'S ORGANIZ ATION 07/07/2024 [facility] Care Teams (unrecognized sec tion and content) Team Status: Active Member Role Status Dates Mei Butt MD Primary Care Provider Active Team Status: Active Member Role Status Dates Mei Butt MD Primary Care Provider Active Start: July 04, 2024 Kathryn Escamilla PA-C Attending Provider Active Start : July 04, 2024 Team Status: Inactive Member Role Status Dates Mei Butt MD Primary Care Provide r, Attending Provider Active Start: July 21, 2024 End: July 21, 2024 Team Status: Active Member Role Status [...] April 20, 2024 End: April 20, 2024 Milling Machine Set Up Operator Relationship Specialty Start Date End Date Mei Butt MD [address] [place] [address] PCP - General Family Medicine 07/01/23 Milling Machine Set Up Operator Relationship Specialty Start Date End Date Mei Butt MD [address] [place] [address] PCP - General Family Medicine 07/01/23 Team Status: Active Member Role Status Dates Mei Butt MD Primary Care Provider Active Start: July 04, 2024 Kathryn Escamilla PA-C Attending Provider Active Start : July 04, 2024 Team Status: Inactive Member Role Status Dates Mei Butt MD Primary Care Provide r, Attending Provider Active Start: July 21, 2024 End: July 21, 2024 Goals (unrecognized section and content) Goals [...] BE BASED ON THE PRIMARY CLINICAL RECORDS. [facility] [employer] [facility]. provides no warranty or guarantee of the accuracy or completeness of information in this document.
== END 2025-01-04 07:28 | disposition home or self-care (01) ==
LOC: MAMMO 07:27
PROVIDERS: PCP Family Medicine; Visit Provider Obstetrics & Gynecology
DX: Z12.31 Encounter for screening mammogram for malignant neoplasm of breast (principal); Z80.0 Family history of malignant neoplasm of digestive organs
CPT/HCPCS: 77063; 77067